=== PATIENT | female | born 1975 | race Caucasian/White ===

== ENCOUNTER 2018-01-22 16:42 | Inpatient (IN) | payer MEDICARE, OTHER ==
[2018-01-22] MEDS ORDERED: SODIUM CHLORIDE 0.9% 1,000 ML IV STA (17:57)
[2018-01-22] MEDS ORDERED: methylPREDNISolone SOD SUCCI 250 MG in SODIUM CHLORIDE 0.9% 100 ML IVPB STA (17:57)
--- NOTE | 2018-01-22 18:01 | ED ---
General Adult HPI - General Chief complaint: Weakness Stated complaint: has ms, legs have been giving out, cant walk Time Seen by Provider: 01/22/18 17:26 Source: patient, RN notes reviewed Mode of arrival: wheelchair Limitations: no limitations - History of Present Illness Initial comments: 42-year-old female with a past medical history of multiple sclerosis presents to the emergency department for a chief complaint of weakness in the legs times one day. Patient states she started to have leg cramping in her anterior bilateral thighs yesterday and today her legs are giving out. She denies any significant back pain at this time and denies any saddle anesthesia or bladder or bowel changes. She states that she has had this happen before. She states that when this happens she has been admitted for IV steroids. She states she generally has mobility issues due to multiple sclerosis but she feels as if she has an an exacerbation at this time. She states she does not follow with a neurologist at this time. She states she does not take any medications for multiple sclerosis. She denies any shortness of breath or chest pain. Patient has no other complaints at this time including shortness of breath, chest pain, abdominal pain, nausea or vomiting, headache, or visual changes. - Related Data Home Medications Medication Instructions Recorded Confirmed Acetaminophen [Tylenol Extra 1,000 mg PO TID PRN 01/22/18 01/22/18 Strength] Allergies Allergy/AdvReac Type Severity Reaction Status Date / Time No Known Allergies Allergy Verified 01/22/18 17:41 Review of Systems ROS Statement: Those systems with pertinent positive or pertinent negative responses have been documented in the HPI. ROS Other: All systems not noted in ROS Statement are negative. Past Medical History Past Medical History: Eye Disorder, GERD/Reflux, Musculoskeletal Disorder, Neurologic Disorder, Pneumonia Additional Past Medical History / Comment(s): 06/19/15 Pt presented to [facility] ER with L sided weakness to L arm and L leg. she fell 2ndary to this L leg weakness this morning. She is being admitted with clinical impression of exacerbation of MS. Other HX: Pt currently being worked up for multiple sclerosis and is being treated for it by Dr. Stephen Titus, she started having bilateral leg weakness in June 2014. PT STATES SHE HAD A BRAIN MRI IN AUGUST AND IT SHOWED LESIONS IN THE FRONTAL LOBE-she has had a LP which was negative for MS. Additional hx: herniated disc and calcified disc as well as bulging disc L4-L5, DJD, chronic back pain, pleurisy, generalized neuropathy per pt, migraines. History of Any Multi-Drug Resistant Organisms: MRSA Date of last positivie culture/infection: 2010 MDRO Source:: R leg Past Surgical History: Tubal Ligation Additional Past Surgical History / Comment(s): LP's, wisdom teeth extraction. Past Anesthesia/Blood Transfusion Reactions: No Reported Reaction Additional Past Anesthesia/Blood Transfusion Reaction / Comment(s): Pt states she has never received blood. Past Psychological History: No Psychological Hx Reported Smoking Status: Current every day smoker Past Alcohol Use History: None Reported Past Drug Use History: Marijuana - Past Family History Father Family Medical History: Unable to Obtain Mother Family Medical History: CVA/TIA, Fibromyalgia Additional Family Medical History / Comment(s): mva as teenager, murmur, 2007 (medication abuse) General Exam Limitations: no limitations General appearance: alert, in no apparent distress Head exam: Present: atraumatic, normocephalic, normal inspection Eye exam: Present: normal appearance, PERRL, EOMI. Absent: scleral icterus, conjunctival injection, periorbital swelling ENT exam: Present: normal exam, mucous membranes moist Neck exam: Present: normal inspection, full ROM. Absent: tenderness, meningismus, lymphadenopathy Respiratory exam: Present: normal lung sounds bilaterally. Absent: respiratory distress, wheezes, rales, rhonchi, stridor Cardiovascular Exam: Present: regular rate, normal rhythm, normal heart sounds. Absent: systolic murmur, diastolic murmur, rubs, gallop, clicks GI/Abdominal exam: Present: soft, normal bowel sounds. Absent: distended, tenderness, guarding, rebound, rigid Extremities exam: Present: normal capillary refill (Capillary refill less than 2 seconds and DP pulse 2+ in lower extremities bilaterally), other (Station intact in the lower extremities bilaterally, strength 4 out of 5 in lower extremities bilaterally) Back exam: Absent: vertebral tenderness (No lumbar spine tenderness) Neurological exam: Present: alert, oriented X3, CN II-XII intact, abnormal gait (weakness with gait that patient states is consistent with ms flare, ), reflexes normal (Patellar reflexes 2+ bilaterally) Course Vital Signs 01/22/18 16:45 Temperature 97.6 F Pulse Rate 118 H Respiratory 16 Rate Blood Pressure 109/72 O2 Sat by Pulse 98 Oximetry EKG Findings - EKG Comments: EKG Findings:: Normal sinus rhythm Ventricular rate 84 MO interval 126, QRS duration 86, QTC 408 Medical Decision Making - Medical Decision Making 42-year-old female presents to the emergency department for a chief complaint of bilateral leg weakness following muscle cramps starting yesterday. Patient states this is consistent with multiple sclerosis remissions. Patient states she is not on any medications or seeing a neurologist for this. Patient states when this happened before she had to be admitted for IV steroids. On exam patient has 4 out of 5 strength in the lower extremity bilaterally. Neurovascular intact in lower extremity bilaterally. She is alert and oriented 3 and denying any chest pain shortness of breath or fevers at home. Patient initially was tachycardic at 118 but EKG acquired shortly after this showed a ventricular rate of 84. No evidence of ST elevation or depression. Troponin is less than 0.012. CBC and CMP are unremarkable. Urine was cultured for any evidence of infection. Chest x-ray showed a normal chest without any evidence of consolidation. Patient was given IV piggyback Solu-Medrol. Patient will be admitted to [facility] with consult to Dr. Barnard neurologist. Dr. Zambrano recommended continuing Solu-Medrol 250 every 6 hours. Case was discussed with Dr. Amaya. - Lab Data Result diagrams: 01/22/18 18:15 01/22/18 18:15 Lab Results 01/22/18 01/22/18 01/22/18 Range/Units 18:15 18:15 18:15 WBC 8.9 (3.8-10.6) k/uL RBC 4.63 (3.80-5.40) m/uL Hgb 14.7 (11.4-16.0) gm/dL Hct 44.5 (34.0-46.0) % MCV 96.0 (80.0-100.0) fL MCH 31.8 (25.0-35.0) pg MCHC 33.1 (31.0-37.0) g/dL RDW 13.1 (11.5-15.5) % Plt Count 204 (150-450) k/uL Neutrophils % 63 % Lymphocytes % 27 % Monocytes % 5 % Eosinophils % 2 % Basophils % 1 % Neutrophils # 5.6 (1.3-7.7) k/uL Lymphocytes # 2.4 (1.0-4.8) k/uL Monocytes # 0.5 (0-1.0) k/uL Eosinophils # 0.2 (0-0.7) k/uL Basophils # 0.1 (0-0.2) k/uL PT (9.0-12.0) sec INR (<1.2) APTT (22.0-30.0) sec Sodium 142 (137-145) mmol/L Potassium 4.3 (3.5-5.1) mmol/L Chloride 111 H (98-107) mmol/L Carbon Dioxide 22 (22-30) mmol/L Anion Gap 9 mmol/L BUN 18 H (7-17) mg/dL Creatinine 0.92 (0.52-1.04) mg/dL Est GFR (CKD-EPI)AfAm >90 (>60 ml/min/1.73 sqM) Est GFR (CKD-EPI)NonAf 78 (>60 ml/min/1.73 sqM) Glucose 91 (74-99) mg/dL Calcium 9.8 (8.4-10.2) mg/dL Total Bilirubin 0.3 (0.2-1.3) mg/dL AST 18 (14-36) U/L ALT 19 (9-52) U/L Alkaline Phosphatase 48 (38-126) U/L Total Creatine Kinase 57 (30-135) U/L CK-MB (CK-2) <0.2 (0.0-2.4) ng/mL CK-MB (CK-2) Rel Index Troponin I <0.012 (0.000-0.034) ng/mL Total Protein 7.6 (6.3-8.2) g/dL Albumin 4.6 (3.5-5.0) g/dL Urine Color Urine Appearance (Clear) Urine pH (5.0-8.0) Ur Specific [place] (1.001-1.035) Urine Protein (Negative) Urine Glucose (UA) (Negative) Urine Ketones (Negative) Urine Blood (Negative) Urine Nitrite (Negative) Urine Bilirubin (Negative) Urine Urobilinogen (<2.0) mg/dL Ur Leukocyte Esterase (Negative) Urine RBC (0-5) /hpf Urine WBC (0-5) /hpf Ur Squamous Epith Cells (0-4) /hpf Amorphous Sediment (None) /hpf Urine Bacteria (None) /hpf Urine Mucus (None) /hpf 01/22/18 01/22/18 Range/Units 18:15 19:48 WBC (3.8-10.6) k/uL RBC (3.80-5.40) m/uL Hgb (11.4-16.0) gm/dL Hct (34.0-46.0) % MCV (80.0-100.0) fL MCH (25.0-35.0) pg MCHC (31.0-37.0) g/dL RDW (11.5-15.5) % Plt Count (150-450) k/uL Neutrophils % % Lymphocytes % % Monocytes % % Eosinophils % % Basophils % % Neutrophils # (1.3-7.7) k/uL Lymphocytes # (1.0-4.8) k/uL Monocytes # (0-1.0) k/uL Eosinophils # (0-0.7) k/uL Basophils # (0-0.2) k/uL PT 10.9 (9.0-12.0) sec INR 1.1 (<1.2) APTT 24.6 (22.0-30.0) sec Sodium (137-145) mmol/L Potassium (3.5-5.1) mmol/L Chloride (98-107) mmol/L Carbon Dioxide (22-30) mmol/L Anion Gap mmol/L BUN (7-17) mg/dL Creatinine (0.52-1.04) mg/dL Est GFR (CKD-EPI)AfAm (>60 ml/min/1.73 sqM) Est GFR (CKD-EPI)NonAf (>60 ml/min/1.73 sqM) Glucose (74-99) mg/dL Calcium (8.4-10.2) mg/dL Total Bilirubin (0.2-1.3) mg/dL AST (14-36) U/L ALT (9-52) U/L Alkaline Phosphatase (38-126) U/L Total Creatine Kinase (30-135) U/L CK-MB (CK-2) (0.0-2.4) ng/mL CK-MB (CK-2) Rel Index Troponin I (0.000-0.034) ng/mL Total Protein (6.3-8.2) g/dL Albumin (3.5-5.0) g/dL Urine Color Yellow Urine Appearance Turbid H (Clear) Urine pH 6.0 (5.0-8.0) Ur Specific [place] 1.021 (1.001-1.035) Urine Protein Trace H (Negative) Urine Glucose (UA) Negative (Negative) Urine Ketones Trace H (Negative) Urine Blood Negative (Negative) Urine Nitrite Negative (Negative) Urine Bilirubin Negative (Negative) Urine Urobilinogen <2.0 (<2.0) mg/dL Ur Leukocyte Esterase Large H (Negative) Urine RBC 4 (0-5) /hpf Urine WBC 5 (0-5) /hpf Ur Squamous Epith Cells 13 H (0-4) /hpf Amorphous Sediment Rare H (None) /hpf Urine Bacteria Occasional H (None) /hpf Urine Mucus Rare H (None) /hpf - Radiology Data Radiology results: report reviewed, image reviewed Disposition Clinical Impression: Bilateral leg weakness, Multiple sclerosis Disposition: ADMITTED IP TO [facility] Condition: Good Referrals: Stephen Viramontes MD [Primary Care Provider] - 1-2 days Time of Disposition: 20:37
[2018-01-22 18:38] LABS: Basophils # (A) 0.1 k/uL (0-0.2); Basophils % (A) 1 %; Eosinophils # (A) 0.2 k/uL (0-0.7); Eosinophils % (A) 2 %; HCT 44.5 % (34.0-46.0); HGB 14.7 gm/dL (11.4-16.0); Lymphocytes # (A) 2.4 k/uL (1.0-4.8); Lymphocytes % (A) 27 %; MCH 31.8 pg (25.0-35.0); MCHC 33.1 g/dL (31.0-37.0); Mean Platelet Volume 8.2; Monocytes # (A) 0.5 k/uL (0-1.0); Monocytes % (A) 5 %; Neutrophils # (A) 5.6 k/uL (1.3-7.7); Neutrophils % (A) 63 %; Platelet Count 204 k/uL (150-450); RBC 4.63 m/uL (3.80-5.40); RDW 13.1 % (11.5-15.5); WBC 8.9 k/uL (3.8-10.6)
[2018-01-22 18:48] LABS: INR 1.1 (<1.2); Partial Thromboplastin Time 24.6 sec (22.0-30.0); Prothrombin Time 10.9 sec (9.0-12.0)
[2018-01-22 18:49] LABS: ALT 19 U/L (9-52); AST 18 U/L (14-36); Albumin 4.6 g/dL (3.5-5.0); Alkaline Phosphatase 48 U/L (38-126); Anion Gap 9 mmol/L; Blood Urea Nitrogen 18 mg/dL (7-17); Calcium 9.8 mg/dL (8.4-10.2); Carbon Dioxide 22 mmol/L (22-30); Chloride 111 mmol/L (98-107); Glucose 91 mg/dL (74-99); Potassium 4.3 mmol/L (3.5-5.1); Sodium 142 mmol/L (137-145); Total Bilirubin 0.3 mg/dL (0.2-1.3); Total Protein 7.6 g/dL (6.3-8.2)
[2018-01-22 18:53] LABS: Creatine Kinase 57 U/L (30-135)
[2018-01-22 19:07] LABS: Creatine Kinase MB <0.2 ng/mL (0.0-2.4); Troponin I <0.012 ng/mL (0.000-0.034)
--- NOTE | 2018-01-22 19:46 | XR ---
EXAMINATION TYPE: XR chest 2V DATE OF EXAM: 01/22/2018 COMPARISON: February 16, 2016 HISTORY: Leg weakness TECHNIQUE: Frontal and lateral views of the chest are obtained. FINDINGS: Heart and mediastinum are normal. Lungs are clear. Diaphragm is normal. Bony thorax appear s normal. IMPRESSION: Normal chest. No change.
[2018-01-22 20:09] LABS: Amorphous Sediment,Urine Rare /hpf; Appearance,Urine Turbid (Clear); Bacteria,Urine Occasional /hpf; Bilirubin,Urine Negative (Negative); Blood,Urine Negative (Negative); Color,Urine Yellow; Glucose,Urine (UA) Negative (Negative); Ketones,Urine Trace (Negative); Leukocyte Esterase,Urine Large (Negative); Mucus,Urine Rare /hpf; Nitrite,Urine Negative (Negative); Protein,Urine Trace (Negative); RBC,Urine 4 /hpf (0-5); Specific Gravity,Urine 1.021 (1.001-1.035); Squamous Epithelial Cell,Urine 13 /hpf (0-4); Urobilinogen,Urine <2.0 mg/dL (<2.0); WBC,Urine 5 /hpf (0-5)
[2018-01-22] MEDS ORDERED: KETOROLAC 30 MG/ML 1 ML VIAL IVP PRN (20:40)
[2018-01-22] MEDS ORDERED: NALOXONE 0.4 MG/ML 1 ML VIAL IV PRN (20:40)
[2018-01-22] MEDS ORDERED: ACETAMINOPHEN TAB 325 MG TAB PO PRN (20:40)
[2018-01-22] MEDS ORDERED: ONDANSETRON 4 MG/2 ML VIAL IVP PRN (20:40)
[2018-01-22] MEDS: SODIUM CHLORIDE 0.9% 1,000 ML IV SCH (22:37)
--- NOTE | 2018-01-22 23:22 | P.HPIM ---
History of Present Illness H&P Date: 01/22/18 Chief Complaint: bilateral leg weakness 42 year old female with history of MS. patient reports baseline of weakness in her legs, requiring assistance device for ambulation , however yesterday she noticed that worsening weakness and bilateral knees she couldn't walk on her own or stand on her own she ended up sitting while doing dishes and preparing meals for the family. She denies any fevers chills denies any changes in her vision denies any changes in sensation or weakness anywhere else in her body except for her lower extremities she also reports a baseline numbness in her bilateral soles. Today she felt that her symptoms got worse and she wasn't even able to get off the chair from a sitting position so decided come the hospital she called a cab and her family assisted her to walk to to the cab to come to the hospital the hospital. She cannot identify any specific stressors that precipitated her attack but she is going through a lot of social stressors. Currently she doesn't notice any improvement in her strength yet in the ED case was discussed with neurology team recommended starting her on methylprednisolone shots and admitted to the hospital She has no established outpatient neurology care, she was diagnosed with MS by performing MRI of the brain in back in 2015. She doesn't take any medications at home Review of Systems Pertinent positives as noted in HPI. All other systems were reviewed and are negative Past Medical History Past Medical History: GERD/Reflux, Musculoskeletal Disorder, Neurologic Disorder , Pneumonia Additional Past Medical History / Comment(s): ms. herniated disc and calcified disc as well as bulging disc L4-L5, DJD, chronic back pain, pleurisy, generalized neuropathy per pt, migraines.occ fuzzy vision. History of Any Multi-Drug Resistant Organisms: MRSA Date of last positivie culture/infection: 2010 MDRO Source:: R leg Past Surgical History: Tubal Ligation Additional Past Surgical History / Comment(s): LP's, wisdom teeth extraction. Past Anesthesia/Blood Transfusion Reactions: No Reported Reaction Additional Past Anesthesia/Blood Transfusion Reaction / Comment(s): Pt states she has never received blood. Past Psychological History: No Psychological Hx Reported Additional Psychological History / Comment(s): apt w/15 year old daughter, inprocess of divirce She lost her walker. now she-she holds onto furniture or daughter helps her. She no longer drives insurance pays for a ride to get to [employer]. Smoking Status: Current every day smoker Past Alcohol Use History: None Reported Additional Past Alcohol Use History / Comment(s): started smoking at age 19- smokes 1 pp every 3 days Past Drug Use History: Marijuana Additional Drug Use History / Comment(s): occ use none in last 4 months - Past Family History Father Family Medical History: Myocardial Infarction (CT) Mother Family Medical History: CVA/TIA, Fibromyalgia Additional Family Medical History / Comment(s): mva as teenager, murmur, 2007 (medication abuse) Medications and Allergies Home Medications Medication Instructions Recorded Confirmed Type Acetaminophen [Tylenol Extra 1,000 mg PO TID PRN 01/22/18 01/22/18 History Strength] Allergies Allergy/AdvReac Type Severity Reaction Status Date / Time No Known Allergies Allergy Verified 01/22/18 17:41 Physical Exam Vitals: Vital Signs Temp Pulse Resp BP Pulse Ox 01/22/18 20:48 66 16 104/62 98 01/22/18 16:45 97.6 F 118 H 16 109/72 98 Intake and Output 01/22/18 01/22/18 01/22/18 06:59 14:59 22:59 Other: Weight 78.381 kg Constitutional: No acute distress, conversant, pleasant Eyes: Anicteric sclerae, moist conjunctiva, no lid-lag Pupils equal round reactive to light ENMT: NC/AT Oropharynx clear, no erythema, or exudates Neck: Supple, FROM, no masses, or JVD No carotid bruits No thyromegaly Lungs: Clear to auscultation Clear to percussion Normal respiratory effort, no accessory muscle use Cardiovascular: Heart regular in rate and rhythm, No murmurs, gallops, or rubs No peripheral edema Abdominal: Soft Nontender, no guarding, rebound or rigidity Abdomen moving with respiration Normoactive bowel sounds No hepatomegaly, No splenomegaly No palpable mass No abdominal wall hernia noted Skin: Normal temperature, tone, texture, turgor No induration No subcutaneous nodules No rash, lesions No ulcers Extremities: No digital cyanosis No clubbing Pedal pulses intact and symmetrical Radial pulses intact and symmetrical No calf tenderness Psychiatric: Alert and oriented to person, place and time Appropriate affect fair judgment Neuro Muscles Strength 5/5 in bilateral upper extremities, however her lower extremities are showing a strength of 3+ out of 5 in proximal muscle group and -3 out of 5 in the distal muscle group bilaterally, dorsal reflex is downward on the right foot and equivocal on the left foot, sensation is dull to sharp pain over bilateral soles Sensation to light touch grossly present throughout, except for dull sensation over bilateral soles Cranial nerves II-XII grossly intact No focal sensory deficits Gait was not tested, patient didn't feel safe to stand Lymphatics: no palpable cervical or supraclavicular , or inguinal lymph nodes Results CBC & Chem 7: 01/22/18 18:15 01/22/18 18:15 Labs: Abnormal Lab Results - Last 24 Hours (Table) 01/22/18 01/22/18 Range/Units 18:15 19:48 Chloride 111 H (98-107) mmol/L BUN 18 H (7-17) mg/dL Urine Appearance Turbid H (Clear) Urine Protein Trace H (Negative) Urine Ketones Trace H (Negative) Ur Leukocyte Esterase Large H (Negative) Ur Squamous Epith Cells 13 H (0-4) /hpf Amorphous Sediment Rare H (None) /hpf Urine Bacteria Occasional H (None) /hpf Urine Mucus Rare H (None) /hpf Assessment and Plan Assessment: 42-year-old female with history of MS admitted as inpatient with anticipated length of stay more than 48 hours due to acute MS exacerbation, case was discussed with neurology recreation attendant who recommended admission and starting the patient on high-dose steroids Plan: Multiple sclerosis flareup Case discussed with neurology Neurology consult Solu-Medrol one gram daily Neurochecks Fall precautions DVT prophylaxis heparin subcu 3 times a day Preformed a thorough record review from recent hospitalization patient diagnosed with MS by performing MRI of the brain and she had a positive LP. Surrogate decision-maker: Patient could not identify CODE STATUS: Full code Discussed with: Patient, ER, RN Anticipated discharge: 48-[address]: Pending clinical course A total of 60minutes was spent on the care of this complex patient more than 50 % of the time was spent in counseling and care coordination.
[2018-01-23] MEDS: methylPREDNISolone SOD SUCCI 250 MG in SODIUM CHLORIDE 0.9% 100 ML IVPB SCH ×5 (00:15→23:23)
[2018-01-23] MEDS: HEPARIN SODIUM,PORCINE 5,000 UNIT/ML 1 ML VIAL SQ SCH ×4 (00:40→23:24)
[2018-01-23] MEDS: SODIUM CHLORIDE 0.9% 1,000 ML IV SCH ×3 (06:00→23:24)
[2018-01-23] MEDS ORDERED: ALPRAZolam 0.25 MG TAB PO PRN (08:23)
--- NOTE | 2018-01-23 08:35 | P.PN ---
Subjective Progress Note Date: 01/23/18 Principal diagnosis: weakness Patient is a 42-year-old female with a past medical history of migraine headaches, chronic low back pain, and multiple sclerosis who presented to the emergency department with complaints of lower extremity weakness. In the emergency department she was found to be slightly tachycardic with a heart rate of 118. Initial laboratory analysis was normal. UA was concentrated but no definitive signs of infection. Chest x-ray showed no acute process. Per records neurology was contacted by the emergency department the patient was started on IV steroids. She is admitted for possible multiple sclerosis flare. Patient seen and examined at bedside. She states she is still having some back pain but is better than when she came in. Still with lower extremity weakness. Has not attempted to stand yet. No nausea, vomiting, or fidgetiness. Anxious about regaining her strength. Discussed with her about awaiting neurology evaluation for further recommendations. Patient is not currently seeing a neurologist. She states she is not on any MS specific medications. She states that she has only needed oral medications with her primary care physician over the last year and a half. Objective - Vital Signs Vital signs: Vital Signs Temp 96.7 F L 01/23/18 07:22 Pulse 73 01/23/18 07:22 Resp 12 01/23/18 07:22 BP 109/56 01/23/18 07:22 Pulse Ox 95 01/23/18 06:38 Intake & Output 01/22/18 01/23/18 01/23/18 18:59 06:59 18:59 Intake Total 2098 Balance 2098 Weight 78.381 kg 77.5 kg Intake: Intake, IV Titration 2098 Amount Sodium Chloride 0.9% 1, 800 000 ml @ 100 mls/hr IV . Q10H [facility] Rx#:[id number] Sodium Chloride 0.9% 1, 999 000 ml @ 999 mls/hr IV . Q1H1M STA Rx#:[id number] methylPREDNISolone SOD 300 SUCCI 250 mg In Sodium Chloride 0.9% 100 ml @ 100 mls/hr IVPB Q6H [facility]SH Rx#:[id number] Other: Voiding Method Bedpan # Voids 1 - Exam General: non toxic, no distress, appears at stated age Derm: warm, dry Head: atraumatic, normocephalic, symmetric Eyes: EOMI, no lid lag, anicteric sclera Mouth: no lip lesion, mucus membranes moist Cardiovascular: S1S2 reg, no murmur, positive posterior tibial pulse bilateral, Lungs: CTA bilateral, no rhonchi, no rales , no accessory muscle use Abdominal: soft, nontender to palpation, no guarding, no appreciable organomegaly Ext: no gross muscle atrophy, no edema, no contractures Neuro: CN II-XI grossly intact, patient has give way weakness bilateral lower extremities, she will lower her legs to the bed, moving and able to sit up without difficulty Psych: Alert, oriented, ears anxious - Labs CBC & Chem 7: 01/22/18 18:15 01/22/18 18:15 Labs: Abnormal Lab Results - Last 24 Hours (Table) 01/22/18 01/22/18 Range/Units 18:15 19:48 Chloride 111 H (98-107) mmol/L BUN 18 H (7-17) mg/dL Urine Appearance Turbid H (Clear) Urine Protein Trace H (Negative) Urine Ketones Trace H (Negative) Ur Leukocyte Esterase Large H (Negative) Ur Squamous Epith Cells 13 H (0-4) /hpf Amorphous Sediment Rare H (None) /hpf Urine Bacteria Occasional H (None) /hpf Urine Mucus Rare H (None) /hpf Microbiology - Last 24 Hours (Table) 01/22/18 19:48 Urine Culture - Preliminary Urine,Voided Assessment and Plan Assessment: Multiple sclerosis flare -Continue with Solu-Medrol 250 every 6 hours - Await neurology evaluation - add insulin sliding scale - neurochecks - fall precautions GERD - PPI Chronic low back pain - toradol DVT prophylaxis: Heparin Discussed with: Patient, nursing Anticipated discharge: [address]: home A total of 35 minutes was spent on the care of this complex patient more than 50 % of the time was spent in counseling and care coordination.
[2018-01-23] MEDS: PANTOPRAZOLE 40 MG TABLET PO SCH (09:21)
[2018-01-23] MEDS: INSULIN ASPART 100 UNIT/ML 1 ML 10 ML VIAL SQ SCH ×3 (12:43→21:56)
[2018-01-23 12:44] LABS: Glucose,Whole Blood 141 mg/dL (75-99)
[2018-01-23 17:30] LABS: Glucose,Whole Blood 232 mg/dL (75-99)
--- NOTE | 2018-01-23 19:59 | P.CNNES ---
History of Present Illness Consult date: 01/23/18 History of Present Illness: Patient is a 42-year-old woman with history of MS. Apparently the patient developed numbness and weakness in the legs and 2015. At that time she was seen by neurologist, Dr. Hankins, and she had a negative spinal tap and MRI. She then sought second opinion with a neurologist out of town who she states determined that she had MS. His records are not available at present. She states that he no longer took her insurance so she was unable to see him and her last visit was in early 2016. The patient states that she has not made any attempt to find a neurologist that takes her insurance since early 2016 because she states there was too much going on with her life. Patient gives history of back problems in the past sent and has been seen by Dr. Miller. She was diagnosed with degenerative disc disease and bulging disc. He does complain of some mild sacral pain over the last 48 hours which is a dull ache. Patient lives at home with her 15-year-old daughter. She states that she normally uses a walker but she has not had a walker because she lost hers months ago. She states she gets around at home by hanging onto the wall. When asked about her daily activities, she states that over the past week she has been out to pick furniture and has had a visit to the courthouse. She does not drive. Patient states that yesterday her legs became weaker and 2 days ago she developed more spasms in her legs. She has a history of spasms in the arms and legs since 2016. Her present complaint is increased numbness and tingling in both legs. She denies any visual changes. She states her vision is good. She denied any bowel or bladder incontinence. Has been no falls. She denies any speech or swallowing difficulty. She states she is able to cook do her laundry and clean house. Review of Systems Constitutional: Denies chills, Denies fever Eyes: denies blurred vision, denies pain Cardiovascular: Denies chest pain, Denies shortness of breath Respiratory: Denies cough Musculoskeletal: Denies myalgias Neurological: Denies numbness, Denies weakness Psychiatric: Denies anxiety, Denies depression Past Medical History Past Medical History: GERD/Reflux, Musculoskeletal Disorder, Neurologic Disorder , Pneumonia Additional Past Medical History / Comment(s): ms. herniated disc and calcified disc as well as bulging disc L4-L5, DJD, chronic back pain, pleurisy, generalized neuropathy per pt, migraines.occ fuzzy vision. History of Any Multi-Drug Resistant Organisms: MRSA Date of last positivie culture/infection: 2010 MDRO Source:: R leg Past Surgical History: Tubal Ligation Additional Past Surgical History / Comment(s): LP's, wisdom teeth extraction. Past Anesthesia/Blood Transfusion Reactions: No Reported Reaction Additional Past Anesthesia/Blood Transfusion Reaction / Comment(s): Pt states she has never received blood. Past Psychological History: No Psychological Hx Reported Additional Psychological History / Comment(s): apt w/15 year old daughter, inprocess of divirce She lost her walker. now she-she holds onto furniture or daughter helps her. She no longer drives insurance pays for a ride to get to appts. Smoking Status: Current every day smoker Past Alcohol Use History: None Reported Additional Past Alcohol Use History / Comment(s): started smoking at age 19- smokes 1 pp every 3 days Past Drug Use History: Marijuana Additional Drug Use History / Comment(s): occ use none in last 4 months - Past Family History Father Family Medical History: Myocardial Infarction ([place]) Mother Family Medical History: CVA/TIA, Fibromyalgia Additional Family Medical History / Comment(s): mva as teenager, murmur, 2007 (medication abuse) Medications and Allergies Home Medications Medication Instructions Recorded Confirmed Type Acetaminophen [Tylenol Extra 1,000 mg PO TID PRN 01/22/18 01/22/18 History Strength] Allergies Allergy/AdvReac Type Severity Reaction Status Date / Time No Known Allergies Allergy Verified 01/22/18 17:41 Physical Examination - Vital Signs Vital Signs: Vital Signs Temp Pulse Pulse Resp BP BP Pulse Ox 01/23/18 15:00 98.0 F 70 20 97/56 92 L 01/23/18 07:22 96.7 F L 73 12 109/56 01/23/18 06:38 96.6 F L 65 16 100/65 95 01/22/18 22:08 97.6 F 76 16 113/56 95 01/22/18 20:48 66 16 104/62 98 Intake and Output 01/23/18 01/23/18 01/23/18 06:59 14:59 22:59 Intake Total 1000 640 Balance 1000 640 Intake: Intake, IV Titration 1000 Amount Sodium Chloride 0.9% 1, 800 000 ml @ 100 mls/hr IV . Q10H HARSH Rx#:[id number] methylPREDNISolone SOD 200 SUCCI 250 mg In Sodium Chloride 0.9% 100 ml @ 100 mls/hr IVPB Q6H HARSH Rx#:[id number] Oral 640 Other: Voiding Method Bedside Commode # Voids 1 2 - Constitutional General appearance: average body habitus - EENT EENT: PERRL - Respiratory Respiratory: lungs clear - Cardiovascular Cardiovascular: regular rate - Integumentary Integumentary: normal - Neurologic Neurologic examination: Mental status: She was awake alert and oriented. There is no a aphasia or dysarthria. Cranial nerve examination: Nerves II through XII are grossly intact Motor examination: And upper extremity strength is 5 out of 5 in the lower extremities she had difficulty raising her legs but was able to raise both legs up against gravity Sensory examination: Variable distribution sensory loss in both lower extremities area and did not follow any particular dermatome. Deep tendon reflexes were 2+ and symmetric Results - Laboratory Findings CBC and BMP: 01/22/18 18:15 01/22/18 18:15 Abnormal Lab Findings: Abnormal Labs 01/22/18 01/22/18 01/23/18 18:15 19:48 12:40 Chloride 111 H BUN 18 H POC Glucose (mg/dL) 141 H Urine Appearance Turbid H Urine Protein Trace H Urine Ketones Trace H Ur Leukocyte Esterase Large H Ur Squamous Epith Cells 13 H Amorphous Sediment Rare H Urine Bacteria Occasional H Urine Mucus Rare H 01/23/18 17:19 Chloride BUN POC Glucose (mg/dL) 232 H Urine Appearance Urine Protein Urine Ketones Ur Leukocyte Esterase Ur Squamous Epith Cells Amorphous Sediment Urine Bacteria Urine Mucus Assessment and Plan (1) Exacerbation of multiple sclerosis Current Visit: No Status: Acute SNOMED Code(s): 072241076 Plan: The patient is a 40-year-old woman who has a reported history of multiple sclerosis. She presented to the emergency room complaining of leg weakness and tingling. She was admitted for IV steroids. She has not had any medication for MS or seen a neurologist since early 2016. In 2016 that she has had a negative MRI of the brain and neck apparently a negative spinal tap. She reports having a positive spinal tap by an outside physician whom she no longer sees. Will try and obtain records emend MRI of the brain and cervical spine., and recommend physical therapy to assess patient
[2018-01-23 20:42] LABS: Glucose,Whole Blood 149 mg/dL (75-99)
[2018-01-23] MEDS: MELATONIN 5 MG TABLET PO PRN (23:23)
[2018-01-24] MEDS: methylPREDNISolone SOD SUCCI 250 MG in SODIUM CHLORIDE 0.9% 100 ML IVPB SCH ×4 (06:40→23:10)
[2018-01-24 07:29] LABS: Glucose,Whole Blood 153 mg/dL (75-99)
[2018-01-24] MEDS: PANTOPRAZOLE 40 MG TABLET PO SCH (08:00)
[2018-01-24] MEDS: HEPARIN SODIUM,PORCINE 5,000 UNIT/ML 1 ML VIAL SQ SCH ×3 (08:00→23:11)
[2018-01-24] MEDS: INSULIN ASPART 100 UNIT/ML 1 ML 10 ML VIAL SQ SCH ×4 (08:00→20:50)
[2018-01-24] MEDS ORDERED: CALCIUM CARBONATE 500 MG CHEWABLE PO PRN (11:15)
--- NOTE | 2018-01-24 11:17 | P.PN ---
Subjective Progress Note Date: 01/24/18 Principal diagnosis: weakness Patient is a 42-year-old female with a past medical history of migraine headaches, chronic low back pain, and multiple sclerosis who presented to the emergency department with complaints of lower extremity weakness. In the emergency department she was found to be slightly tachycardic with a heart rate of 118. Initial laboratory analysis was normal. UA was concentrated but no definitive signs of infection. Chest x-ray showed no acute process. Per records neurology was contacted by the emergency department the patient was started on IV steroids. She is admitted for possible multiple sclerosis flare. Seen by neurology and awaiting MRI. Patient seen and examined at bedside. States her weakness is slightly better. Complains of bad heart burn. No chest pain, shortness of breath, nausea and vomiting. Feeling a little bit fidgety. Objective - Vital Signs Vital signs: Vital Signs Temp 98.2 F 01/24/18 06:52 Pulse 72 01/24/18 06:52 Resp 16 01/24/18 06:52 BP 99/62 01/24/18 06:52 Pulse Ox 93 L 01/24/18 06:52 Intake & Output 01/23/18 01/24/18 01/24/18 18:59 06:59 18:59 Intake Total 640 Balance 640 Intake: Oral 640 Other: Voiding Method Bedside Commode # Voids 2 2 - Exam General: non toxic, no distress, appears at stated age Derm: warm, dry Head: atraumatic, normocephalic, symmetric Eyes: EOMI, no lid lag, anicteric sclera Mouth: no lip lesion, mucus membranes moist Cardiovascular: S1S2 reg, no murmur, positive posterior tibial pulse bilateral, Lungs: CTA bilateral, no rhonchi, no rales , no accessory muscle use Abdominal: soft, nontender to palpation, no guarding, no appreciable organomegaly Ext: no gross muscle atrophy, no edema, no contractures Neuro: CN II-XI grossly intact, patient has give way weakness bilateral lower extremities, sits up without difficulty when leg raised she hold knee in place and drops ankle down to bed. Psych: Alert, oriented,anxious - Labs CBC & Chem 7: 01/22/18 18:15 01/22/18 18:15 Labs: Abnormal Lab Results - Last 24 Hours (Table) 01/23/18 01/23/18 01/23/18 Range/Units 12:40 17:19 20:41 POC Glucose (mg/dL) 141 H 232 H 149 H (75-99) mg/dL 01/24/18 Range/Units 06:58 POC Glucose (mg/dL) 153 H (75-99) mg/dL Microbiology - Last 24 Hours (Table) 01/22/18 19:48 Urine Culture - Final Urine,Voided 01/22/18 18:15 Blood Culture - Preliminary Blood No Growth after 24 hours Assessment and Plan Assessment: Multiple sclerosis flare -Continue with Solu-Medrol 250 every 6 hours - neurology recs appreciated - PT eval - neurochecks - fall precautions GERD - PPI - prn tums Chronic low back pain - toradol Tobacco abuse - cessation - does not want nicotine replacement DVT prophylaxis: Heparin Discussed with: Patient, nursing Anticipated discharge: [address]: home A total of 35 minutes was spent on the care of this complex patient more than 50 % of the time was spent in counseling and care coordination.
[2018-01-24 12:11] LABS: Glucose,Whole Blood 166 mg/dL (75-99)
--- NOTE | 2018-01-24 12:31 | MR ---
EXAMINATION TYPE: MR brain/cspine wo DATE OF EXAM: 01/24/2018 COMPARISON: Previous study dated 04/21/2015. HISTORY: MS exacerbation TECHNIQUE: Multiplanar, multisequence images of the brain and brainstem is performed without contrast. Demyelin ating disease protocol with additional Sagittal Flair sequence performed. FINDINGS: T2 Lesions Present : No Approximate Number of Lesions: None T1 Hypointense Lesion(s) Present: No Change from Prior: Stable Middle ear structures are unremarkable. There is normal cranial cervical junction. Echoplanar diffusion imaging is normal. There are normal vascular flow voids. The orbits are normal. There is no evidence of a CP angle mass lesion. There is no focal lesion, mass effect or midline shift identified. I do not see evidence of intracran ial blood. IMPRESSION: Normal MRI of the brain. CERVICAL SPINE: FINDINGS: Prevertebral soft tissues are normal. Vertebral body height and alignment are maintained. Atlantoaxial relationships are normal. There is a normal craniocervical junction. Cord signal is normal. I do not see evidence of MS plaques . At C2-C3, no abnormality is seen. At C3-C4, there is mild disc space loss. There is no significant compressive discopathy. The facet an d uncovertebral joints are normal. At C4-C5, the intervertebral foramina are well maintained. There is no significant compressive discop athy. The facet and uncovertebral joints are unremarkable. At C5-C6, there is a right paracentral disc protrusion deforming the thecal sac without cord contact. This is narrowing the exiting foramina at this level. The facet and uncovertebral joints are unremar kable. At C6-7 and C7-T1, no definite abnormality is seen. IMPRESSION: 1. NO EVIDENCE OF MS PLAQUE. 2. RIGHT PARACENTRAL DISCOGENIC, C5-6 DEFORMING THE THECAL SAC WITHOUT CORD CONTACT BUT CAUSING RIGHT -SIDED INTERVERTEBRAL FORAMINAL NARROWING AT THIS LEVEL. THIS REPRESENTS AN INTERVAL CHANGE.
[2018-01-24] MEDS: SODIUM CHLORIDE 0.9% 1,000 ML IV SCH ×2 (12:32→22:59)
--- NOTE | 2018-01-24 15:13 | P.PN ---
Subjective Progress Note Date: 01/24/18 The patient is a 42-year-old woman with history of MS. She is in the hospital with MS exacerbation due to weakness in the legs. The patient had an MRI of the brain today which was normal. Also she had an MRI of the cervical spine which showed a cervical disc bulge. Patient has a history of numbness and Curry in the hands and legs. We have requested records from her past neurologist. Not have records as yet. The patient has no new complaints. He states she was able to stand and get to the commode today. Objective - Vital Signs Vital signs: Vital Signs Temp 98.3 F 01/24/18 14:20 Pulse 78 01/24/18 14:20 Resp 16 01/24/18 14:20 BP 96/58 01/24/18 14:20 Pulse Ox 96 01/24/18 14:20 Intake & Output 01/23/18 01/24/18 01/24/18 18:59 06:59 18:59 Intake Total 640 Balance 640 Intake: Oral 640 Other: Voiding Method Bedside Commode # Voids 2 2 1 - Constitutional General appearance: Present: average body habitus - Respiratory Respiratory: bilateral: CTA - Cardiovascular Rhythm: regular - Neurologic Neurologic Comment(s): Neurologic examination: Mental status: She was awake alert and oriented. There was no a aphasia or dysarthria. Next Cranial nerve examination: Cranial nerves II through XII grossly intact next Motor examination: She had some give way type weakness in both lower extremities next Sensory examination: Variable distribution loss of pinprick in the legs Deep tendon reflexes 2+ and symmetric - Labs CBC & Chem 7: 01/22/18 18:15 01/22/18 18:15 Labs: Abnormal Lab Results - Last 24 Hours (Table) 01/23/18 01/23/18 01/24/18 Range/Units 17:19 20:41 06:58 POC Glucose (mg/dL) 232 H 149 H 153 H (75-99) mg/dL 01/24/18 Range/Units 12:09 POC Glucose (mg/dL) 166 H (75-99) mg/dL Microbiology - Last 24 Hours (Table) 01/22/18 19:48 Urine Culture - Final Urine,Voided 01/22/18 18:15 Blood Culture - Preliminary Blood No Growth after 24 hours Assessment and Plan (1) Exacerbation of multiple sclerosis Current Visit: No Status: Acute SNOMED Code(s): 612947709 Plan: The patient is a 40-year-old woman who has a reported history of multiple sclerosis. She presented to the emergency room complaining of leg weakness and tingling. Continue IV Solu-Medrol. She has had an MRI of the brain and cervical spine which does not explain her leg weakness. Will also do MRI of the lumbar spine. Recommend physical therapy.
[2018-01-24 17:08] LABS: Glucose,Whole Blood 155 mg/dL (75-99)
[2018-01-24 20:35] LABS: Glucose,Whole Blood 181 mg/dL (75-99)
--- NOTE | 2018-01-24 22:23 | MR ---
EXAMINATION TYPE: MR lumbar spine wo con DATE OF EXAM: 01/24/2018 COMPARISON: 07/13/2014 HISTORY: Numbness. Back pain TECHNIQUE: Multiplanar, multisequence images of the lumbar spine were acquired. The vertebra have normal alignment. There is slight narrowing and decreased signal in the disks at L4 -5 L5-S1. There is no compression fracture. Lumbar nerve roots appear normal. There is no spinal sten osis. There is small posterior disc bulging at L4-5 and L5-S1 without compromise of the spinal canal. I see no lumbar paraspinal mass. Posterior elements are intact. There is no evidence of focal bony d estructive process. IMPRESSION: Spondylotic changes in the lower lumbar spine at L4-5 L5-S1. There is decrease in size of the posteri or disc herniation at L4-5 compared to old exam and consistent with desiccation. No change in small d isc bulge at L5-S1. No spinal stenosis.
[2018-01-24] MEDS: MELATONIN 5 MG TABLET PO PRN (23:10)
[2018-01-25] MEDS: methylPREDNISolone SOD SUCCI 250 MG in SODIUM CHLORIDE 0.9% 100 ML IVPB SCH ×4 (05:20→23:40)
[2018-01-25 06:17] VITALS: RESP 16
[2018-01-25 07:13] LABS: Glucose,Whole Blood 144 mg/dL (75-99)
[2018-01-25] MEDS: HEPARIN SODIUM,PORCINE 5,000 UNIT/ML 1 ML VIAL SQ SCH ×3 (07:44→23:40)
[2018-01-25] MEDS: PANTOPRAZOLE 40 MG TABLET PO SCH (07:44)
[2018-01-25] MEDS: INSULIN ASPART 100 UNIT/ML 1 ML 10 ML VIAL SQ SCH ×4 (07:44→21:16)
[2018-01-25] MEDS: SODIUM CHLORIDE 0.9% 1,000 ML IV SCH ×3 (07:49→23:40)
[2018-01-25 11:54] LABS: Glucose,Whole Blood 142 mg/dL (75-99)
--- NOTE | 2018-01-25 13:38 | P.PN ---
Subjective Progress Note Date: 01/25/18 Principal diagnosis: weakness Patient is a 42-year-old female with a past medical history of migraine headaches, chronic low back pain, and multiple sclerosis who presented to the emergency department with complaints of lower extremity weakness. In the emergency department she was found to be slightly tachycardic with a heart rate of 118. Initial laboratory analysis was normal. UA was concentrated but no definitive signs of infection. Chest x-ray showed no acute process. Per records neurology was contacted by the emergency department the patient was started on IV steroids. She is admitted for possible multiple sclerosis flare. Seen by neurology, MRI brain negative, MRI lumbar spine without significant disease. Patient seen and examined at bedside. Patient continues to complain of bilateral lower extremity weakness and states she is unable to stand on her own or perform her activities of daily living. We discussed possible conversion disorder with lack of evidence of disease on MRI Brain, Cervical spine, and Lumbar spine to account for disease. Patient is reluctant to stop IV steroids without first speaking with neurology, she then states that she is not getting the typical energy boost she normally receives from them. Objective - Vital Signs Vital signs: Vital Signs Temp 98.6 F 01/25/18 06:15 Pulse 57 L 01/25/18 06:15 Resp 16 01/25/18 06:15 BP 108/66 01/25/18 06:15 Pulse Ox 93 L 01/25/18 06:15 Intake & Output 01/24/18 01/25/18 01/25/18 18:59 06:59 18:59 Other: # Voids 1 1 - Exam General: non toxic, no distress, appears at stated age Derm: warm, dry Head: atraumatic, normocephalic, symmetric Eyes: EOMI, no lid lag, anicteric sclera Mouth: no lip lesion, mucus membranes moist Cardiovascular: S1S2 reg, no murmur, positive posterior tibial pulse bilateral, Lungs: CTA bilateral, no rhonchi, no rales , no accessory muscle use Abdominal: soft, nontender to palpation, no guarding, no appreciable organomegaly Ext: no gross muscle atrophy, no edema, no contractures Neuro: CN II-XI grossly intact, sits up without difficulty when leg raised she is able to hold them up after asking twie and telling her she can do better but then complains of back pain. Psych: Alert, oriented,anxious - Labs CBC & Chem 7: 01/22/18 18:15 01/22/18 18:15 Labs: Abnormal Lab Results - Last 24 Hours (Table) 01/24/18 01/24/18 01/25/18 Range/Units 17:05 20:34 07:08 POC Glucose (mg/dL) 155 H 181 H 144 H (75-99) mg/dL 01/25/18 Range/Units 11:48 POC Glucose (mg/dL) 142 H (75-99) mg/dL Microbiology - Last 24 Hours (Table) 01/22/18 18:15 Blood Culture - Preliminary Blood No Growth after 48 hours Assessment and Plan Assessment: Lower extremity weakness -Continue with Solu-Medrol 250mg every 6 hours until seen again by neurology - MRI brain and L spine without abnormalities, Suspect Conversion disorder. - neurology recs appreciated - PT eval - neurochecks - fall precautions - Psych consult if neurology in agreement for possible conversion disorder. GERD - PPI - prn tums Chronic low back pain - toradol Tobacco abuse - cessation - does not want nicotine replacement DVT prophylaxis: Heparin Discussed with: Patient, nursing Anticipated discharge: [address]: home A total of 35 minutes was spent on the care of this complex patient more than 50 % of the time was spent in counseling and care coordination.
[2018-01-25 16:48] LABS: Glucose,Whole Blood 143 mg/dL (75-99)
--- NOTE | 2018-01-25 17:40 | P.PN ---
Subjective Progress Note Date: 01/25/18 The patient is a 42-year-old woman admitted to the hospital with history of MS. She has not followed up with a physician for MS in over a year. She states that typically her MS exacerbation consists of weakness in the legs. She has had IV steroids for 3 days and she reports no improvement. She denies any numbness in the legs. She does have chronic tingling in the hands. She's had an MRI of the brain which was normal as well as an MRI of the cervical spine which showed only a cervical disc bulge. She had an MRI of the lumbar spine which showed improvement of a disc bulge since 2015. The patient states that when she stands she feels her hips and knees give out. She is unable to walk to the bathroom. She is using a bedside commode. She has no sensory findings or symptoms in her legs and her reflexes are intact. We are awaiting spinal fluid results from Dr. De León her previous neurologist. Objective - Vital Signs Vital signs: Vital Signs Temp 98.4 F 01/25/18 15:00 Pulse 55 L 01/25/18 15:00 Resp 16 01/25/18 15:00 BP 104/64 01/25/18 15:00 Pulse Ox 93 L 01/25/18 15:00 Intake & Output 01/24/18 01/25/18 01/25/18 18:59 06:59 18:59 Other: # Voids 1 1 3 - Constitutional General appearance: Present: average body habitus - EENT Eyes: Present: PERRLA ENT: Present: hearing grossly normal - Respiratory Respiratory: bilateral: CTA - Cardiovascular Rhythm: regular - Neurologic Neurologic Comment(s): Neurologic examination: Mental status: She was awake alert and oriented 3. Her speech was fluent. There is no a aphasia or dysarthria. Next Cranial nerves II through XII: Were grossly intact next Motor examination in upper extremities 5 out of 5 in the lower extremity she was able to lift both legs up against gravity next Deep tendon reflexes were 2+ and symmetric Sensory examination intact to light touch Gait: Could not be tested - Labs CBC & Chem 7: 01/22/18 18:15 01/22/18 18:15 Labs: Abnormal Lab Results - Last 24 Hours (Table) 01/24/18 01/25/18 01/25/18 Range/Units 20:34 07:08 11:48 POC Glucose (mg/dL) 181 H 144 H 142 H (75-99) mg/dL 01/25/18 Range/Units 16:42 POC Glucose (mg/dL) 143 H (75-99) mg/dL Microbiology - Last 24 Hours (Table) 01/22/18 18:15 Blood Culture - Preliminary Blood No Growth after 48 hours Assessment and Plan (1) Exacerbation of multiple sclerosis Current Visit: No Status: Acute SNOMED Code(s): 593459267 Plan: The patient is a 40-year-old woman who has a reported history of multiple sclerosis. She presented to the emergency room complaining of leg weakness and tingling. She denies any numbness in the legs currently. Her main complaint is that when she stands her hip and knees give out on her. Her deep tendon reflexes are intact. She reports no improvement in her leg strength in spite of IV steroids There is no indication of demyelination on her imaging studies. Recommend possible transfer to [facility] for unexplained leg weakness
[2018-01-25 20:45] LABS: Glucose,Whole Blood 151 mg/dL (75-99)
[2018-01-26] MEDS: methylPREDNISolone SOD SUCCI 250 MG in SODIUM CHLORIDE 0.9% 100 ML IVPB SCH ×2 (05:00→12:39)
[2018-01-26 06:42] VITALS: BP 116/65; PULSE 54; TEMP 97.8
[2018-01-26 07:04] LABS: Glucose,Whole Blood 149 mg/dL (75-99)
[2018-01-26] MEDS: PANTOPRAZOLE 40 MG TABLET PO SCH (07:42)
[2018-01-26] MEDS: INSULIN ASPART 100 UNIT/ML 1 ML 10 ML VIAL SQ SCH ×2 (07:43→12:39)
[2018-01-26] MEDS: HEPARIN SODIUM,PORCINE 5,000 UNIT/ML 1 ML VIAL SQ SCH (07:43)
[2018-01-26 12:20] LABS: Glucose,Whole Blood 134 mg/dL (75-99)
--- NOTE | 2018-01-26 21:30 | DS ---
DISCHARGE SUMMARY DATE OF ADMISSION: 01/22/18. DATE OF TRANSFER: 01/26/18. FINAL DIAGNOSES: 1. Bilateral lower extremity paresis causing severe gait dysfunction, cause unknown. 2. Hyperglycemia secondary to steroids. 3. Contaminated urine sample. HOSPITAL COURSE: This is a 42-year-old patient who had a questionable diagnosis of multiple sclerosis in the [place] area and because of insurance reasons, patient did not follow up. The patient was seen by the local neurologist Dr. Hankins as an outpatient. The patient did have a lumbar puncture and MRI. Multiple sclerosis was ruled out. The patient at the baseline states that she has trouble walking is to hold on to things and walk. Presents with increasing lower extremity muscle spasms, more difficulty in walking. The patient did undergo a lumbar spine MRI. There was mild spondylitic changes in the lumbar level with no obvious spinal cord compression. The patient also had cervical and brain MRI. There is some right paracentral disc in the neck C5-C6 deforming the thecal sac without any cord contact with some right-sided intervertebral foramina narrowing. This admission patient was seen and by neurologist, Dr. Inna Freeman and she thought patient may have had a conversion disorder. Because patient is still weak and could only use a bedside commode, recommended to be transferred to [facility] for higher level of care and further investigations. PHYSICAL EXAMINATION: Temperature 97.8, pulse 54, respirations 16, blood pressure 116/75, pulse 94 percent room air. Power in the lower extremity 3/5. Sensation grossly preserved. Reflexes equal and symmetrical on both the sides. I spoke to the admitting medical office at [facility] and discussed the care. Also discussed the care with the patient. The patient had concerns about a 15-year-old daughter at home but did understand the need for importance to going to a higher level of care as she was given the IV steroids and yet really did not help her much. Hence patient is going to get transferred and has been accepted to [facility]. Discussion and discharge planning more than 35 minutes. DISCHARGE MEDICATIONS: Tylenol p.r.n. at home. DISPOSITION: [facility] with neurology consult at [facility]. MMODL / IJN: [id number] /
--- NOTE | 2018-01-29 10:14 | CDI ---
Last Revision, February 2017 Documentation Clarification Form Date: 01/29/18 From: Maty Jeb Rachna Conrad, Cocktail Waitress Hours-8:30 am & 5 pm M-F Admit Date: 01/24/2018 1:50:00 PM Patient Name: Bettye Huang Visit Number: [id number] Discharge Date: 01/26/18 ATTENTION: The Clinical Documentation Specialists (CDI) and [facility] Coding Staff appreciate your assistance in clarifying documentation. Please respond to the clarification below the line at the bottom and electronically sign. The CDI & [facility] Coding staff will review the response and follow-up if needed. Please note: Queries are made part of the Legal Health Record. If you have any questions, please contact the author of this message via ITS. Mehul Lawrence MD Patient presented with bilateral leg weakness. Final discharge diagnosis is bilateral lower extremity paresis causing severe gait dysfunction, cause unknown . According to the discharge narrative, MS was ruled out. Neurology thought patient may have had a conversion disorder. MRI of spine revealed lumbar spondylitic changes and disc displacement and narrowing of foramina at C5 -C6. Patient transferred to [facility]. For accuracy of reporting, please clarify the likely or possible cause (s) of the patients weakness/paresis: ---Conversion disorder ---Lumbar spondylitic changes ---Cervical disc displacement and/or foramina narrowing --- All of the above ( have not been ruled out) ----Other ----Unable to determine Please continue to document in your progress notes and discharge summary in order to capture severity of illness and risk of mortality. Include clinical findings that support your diagnosis. unable to determine; therefore pt transfered to tertiary center [facility]
== END 2018-01-26 13:47 | disposition short-term general hospital (02) | DRG 53 ==
LOC: EC 16:42 → 4MS4W 20:37 → OBSVTOIN 01-24 13:50
PROVIDERS: ADMIT Hospitalist; ATTEND Hospitalist
DX: G82.20 Paraplegia, unspecified (principal); F44.4 Conversion disorder with motor symptom or deficit; M50.222 Other cervical disc displacement at C5-C6 level; G62.9 Polyneuropathy, unspecified; T38.0X5A Adverse effect of glucocorticoids and synthetic analogues, initial encounter; R73.9 Hyperglycemia, unspecified; K21.9 Gastro-esophageal reflux disease without esophagitis; M51.26 Other intervertebral disc displacement, lumbar region; G89.29 Other chronic pain; G43.909 Migraine, unspecified, not intractable, without status migrainosus; M19.91 Primary osteoarthritis, unspecified site; M53.3 Sacrococcygeal disorders, not elsewhere classified; H57.9 Unspecified disorder of eye and adnexa; F17.210 Nicotine dependence, cigarettes, uncomplicated; Z71.6 Tobacco abuse counseling; Z86.14 Personal history of Methicillin resistant Staphylococcus aureus infection; Z87.01 Personal history of pneumonia (recurrent); Z98.51 Tubal ligation status; Z82.49 Family history of ischemic heart disease and other diseases of the circulatory system; Z82.69 Family history of other diseases of the musculoskeletal system and connective tissue; Z82.3 Family history of stroke
CPT/HCPCS: 36415; 70551; 71046; 72141; 72148; 80053; 81001; 82550; 82553; 84484; 85025; 85610; 85730; 87040; 87086; 93005; 96365; 99284

== ENCOUNTER 2018-04-23 15:42 | Emergency (ER) | payer MEDICARE, OTHER ==
[2018-04-23 15:48] VITALS: BP 124/63; PULSE 94; RESP 18; TEMP 97.9
[2018-04-23] MEDS ORDERED: DIPH,PERTUS(ACELL)TETVAC-LF 0.5 ML VIAL IM ONE (16:22)
[2018-04-23] MEDS ORDERED: LIDOCAINE 1% INJ 10MG/ML (20 ML MDV) SQ STA (16:26)
--- NOTE | 2018-04-23 16:30 | XR ---
Right hand HISTORY: Laceration 3 views of the right hand Bone mineralization, joint spaces and alignment are maintained. No radiographic foreign body. IMPRESSION: No fracture or dislocation.
--- NOTE | 2018-04-23 16:30 | ED ---
General Adult HPI - General Chief complaint: Wound/Laceration Stated complaint: Laceration Time Seen by Provider: 04/23/18 15:51 Source: patient, RN notes reviewed, old records reviewed Mode of arrival: EMS Limitations: no limitations - History of Present Illness Initial comments: 43-year-old female patient with past history of multiple sclerosis presents ED today with laceration on her right hand between her second and third digits. Patient was reportedly using a utensil to cut clothing when this occurred. Patient denies any other injury. Patient reports for range of motion of all digits. Patient doesn't know date of last tetanus, will updated today. Patient denies other complaints. Systemic: Pt denies fatigue, fever/chills, rash. Pt denies weakness, night sweats, weight loss. Neuro: Pt denies headache, visual disturbances, syncope or pre-syncope. HEENT: Pt denies ocular discharge or irritation, otalgia, rhinorrhea, pharyngitis or notable lymphadenopathy. Cardiopulmonary: Pt denies chest pain, SOB, heart palpitations, dyspnea on exertion. Abdominal/GI: Pt denies abdominal pain, n/v/d. : Pt denies dysuria, burning w/ urination, frequency/urgency. Denies new onset urinary or bowel incontinence. MSK: Pt denies loss of strength or function in extremities. Neuro: Pt denies new onset weakness, paresthesias. - Related Data Home Medications Medication Instructions Recorded Confirmed Acetaminophen [Tylenol Extra 1,000 mg PO TID PRN 01/22/18 01/22/18 Strength] Previous Rx's Medication Instructions Recorded Cephalexin [Keflex] 500 mg PO Q12HR 6 Days #6 cap 04/23/18 Allergies Allergy/AdvReac Type Severity Reaction Status Date / Time No Known Allergies Allergy Verified 04/23/18 15:43 Review of Systems ROS Statement: Those systems with pertinent positive or pertinent negative responses have been documented in the HPI. ROS Other: All systems not noted in ROS Statement are negative. Past Medical History Past Medical History: GERD/Reflux, Musculoskeletal Disorder, Neurologic Disorder , Pneumonia Additional Past Medical History / Comment(s): ms. herniated disc and calcified disc as well as bulging disc L4-L5, DJD, chronic back pain, pleurisy, generalized neuropathy per pt, migraines.occ fuzzy vision. History of Any Multi-Drug Resistant Organisms: MRSA Date of last positivie culture/infection: 2010 MDRO Source:: R leg Past Surgical History: Tubal Ligation Additional Past Surgical History / Comment(s): LP's, wisdom teeth extraction. Past Anesthesia/Blood Transfusion Reactions: No Reported Reaction Additional Past Anesthesia/Blood Transfusion Reaction / Comment(s): Pt states she has never received blood. Past Psychological History: PTSD Smoking Status: Current every day smoker Past Alcohol Use History: None Reported Past Drug Use History: Marijuana - Past Family History Father Family Medical History: Myocardial Infarction ([place]) Mother Family Medical History: CVA/TIA, Fibromyalgia Additional Family Medical History / Comment(s): mva as teenager, murmur, 2007 (medication abuse) General Exam - General Exam Comments Initial Comments: Constitutional: NAD, AOX3, Pt has pleasant affect. HEENT: NC/AT, trachea midline, neck supple, no lymphadenopathy. Posterior pharynx non erythematous, without exudates. External ears appear normal, without discharge. Mucous membranes moist. Eyes PERRLA, EOM intact. There is no scleral icterus. No pallor noted. Cardiopulmonary: RRR, no murmurs, rubs or gallops, no JVD noted. Lungs CTAB in anterior and posterior diamond. No peripheral edema. Abdominal exam: Abdomen soft and non-distended. Abdomen non-tender to palpation in all 4 quadrants. Bowel sounds active in LLQ. No hepatosplenomegaly. No ecchymosis Neuro: CN II-XII grossly intact. No nuchal rigidity. MSK: Approximately 2 cm laceration noted between the second and third digits. Patient has full range of motion of digits. Full range of motion of MCP, PIP, DIP intact in all digits. Sensation intact. Capillary refill less than 2 seconds. No posterior calf tenderness bilaterally, homans sign negative bilaterally. Posterior tibialis and radial pulse +2 bilaterally. Sensation intact in upper and lower extremities. Full active ROM in upper and lower extremities, 5/5 stregnth. Limitations: no limitations Course Vital Signs 04/23/18 15:43 Temperature 97.9 F Pulse Rate 94 Respiratory 18 Rate Blood Pressure 124/63 O2 Sat by Pulse 96 Oximetry Procedures - Laceration Laceration #1 Consent Obtained: verbal consent Indication: laceration Site: hand (L hand interwebbing between second and third digit) Size (cm): 2 Description: linear Depth: simple, single layer Anesthetic Used: lidocaine 1% Anesthesia Technique: local infiltration Amount (mls): 6 Pre-repair: wound explored, irrigated extensively (500 mL NS ), deep structures intact (no foreign body, bony or ligamentous involvement ) Type of Sutures: nylon Size of Sutures: 5-0 Number of Sutures: 3 Technique: simple, interrupted Patient Tolerated Procedure: well, no complications Medical Decision Making - Medical Decision Making 43-year-old female patient with past history of multiple sclerosis presents ED today with laceration on her right hand between her second and third digits. Patient was reportedly using a utensil to cut clothing when this occurred. Patient denies any other injury. Patient reports for range of motion of all digits. Patient doesn't know date of last tetanus, will updated today. Patient denies other complaints. VSS, afebrile. Physical exam displayed: Approximately 2 cm laceration noted between the second and third digits. Patient has full range of motion of digits. Full range of motion of MCP, PIP, DIP intact in all digits. Plain films displayed no acute process. Laceration was closed with 3 simple interrupted sutures. Patient tired procedure well. Patient to return in 7-10 days for suture removal. Patient is given signs symptoms of infection, verbalized understanding. Patient to follow with primary care provider in 1-2 days. Patient to return to ED if new signs symptoms develop or if condition worsens in anyway. Case discussed with Dr. Garcia. Pt tetanus updated. Disposition Clinical Impression: Laceration Disposition: HOME SELF-CARE Condition: Stable Instructions (If sedation given, give patient instructions): Care For Your Stitches (ED), Laceration (ED) Additional Instructions: Patient to adhere to previously discussed treatment plan and will take medication(s) as directed. Patient to follow up with PCP in 1-2 days. Patient to return to ED if symptoms do not improve. Please return for suture removal: Hand: 7-10 days Face: 5 days Chest/abdomen: 12-14 days Extremities: 7-10 days Scalp: 7 days Eyebrow: 5-7 days Foot/sole: 12-14 days Please monitor for signs and symptoms of infection including: redness, warmth, drainage, discharge. Please return to ED if these signs or symptoms occur, new signs or symptoms develop or if condition worsens in anyway. Prescriptions: Cephalexin [Keflex] 500 mg PO Q12HR 6 Days #6 cap Is patient prescribed a controlled substance at d/c from ED?: No Referrals: Walter Santiago MD [Primary Care Provider] - 1-2 days Time of Disposition: 18:15
== END 2018-04-23 18:21 | disposition home or self-care (01) ==
LOC: EC 15:42
DX: S61.411A Laceration without foreign body of right hand, initial encounter (principal); F17.200 Nicotine dependence, unspecified, uncomplicated; Z86.14 Personal history of Methicillin resistant Staphylococcus aureus infection; Z86.69 Personal history of other diseases of the nervous system and sense organs; Z23 Encounter for immunization; W27.8XXA Contact with other nonpowered hand tool, initial encounter; Y93.89 Activity, other specified
CPT/HCPCS: 73130; 90715; 99284; 12001; 90471; J2001

== ENCOUNTER 2020-12-26 15:23 | Emergency (ER) | payer MEDICARE, OTHER ==
[2020-12-26 15:32] VITALS: BP 128/80; PULSE 88; RESP 20
[2020-12-26] MEDS ORDERED: SODIUM CHLORIDE 0.9% 1,000 ML IV STA (16:59)
--- NOTE | 2020-12-26 17:11 | ED ---
General Adult HPI - General Chief complaint: Weakness Stated complaint: MS flare up Time Seen by Provider: 12/26/20 16:19 Source: patient Mode of arrival: ambulatory Limitations: no limitations - History of Present Illness Initial comments: 45-year-old female with a past medical history of multiple sclerosis, herniated disc, bulging disks presents to the emergency room for a chief complaint of bilateral leg weakness. Patient has had bilateral leg weakness and worsening for the past couple days. States this feels a previous MS flare. Patient state s the last time this happened she was in a wheelchair for a year because she missed the window for steroids to help her. Patient has been on MS medication before but has not been on it for quiet some time because "life happens." Pt states she has not followed up with a neurologist in years. Of systems - Related Data Home Medications Medication Instructions Recorded Confirmed Acetaminophen [Tylenol Extra 1,000 mg PO TID PRN 01/22/18 01/22/18 Strength] Previous Rx's Medication Instructions Recorded Cephalexin [Keflex] 500 mg PO Q12HR 6 Days #6 cap 04/23/18 predniSONE [Deltasone] 20 mg PO BID 7 Days #14 tab 12/26/20 Allergies Allergy/AdvReac Type Severity Reaction Status Date / Time No Known Allergies Allergy Verified 12/26/20 15:33 Review of Systems ROS Statement: Those systems with pertinent positive or pertinent negative responses have been documented in the HPI. ROS Other: All systems not noted in ROS Statement are negative. Past Medical History Past Medical History: GERD/Reflux, Musculoskeletal Disorder, Neurologic Disorder, Pneumonia Additional Past Medical History / Comment(s): ms. herniated disc and calcified disc as well as bulging disc L4-L5, DJD, chronic back pain, pleurisy, generalized neuropathy per pt, migraines.occ fuzzy vision. History of Any Multi-Drug Resistant Organisms: MRSA Date of last positivie culture/infection: 2010 MDRO Source:: R leg Past Surgical History: Tubal Ligation Additional Past Surgical History / Comment(s): LP's, wisdom teeth extraction. Past Anesthesia/Blood Transfusion Reactions: No Reported Reaction Additional Past Anesthesia/Blood Transfusion Reaction / Comment(s): Pt states she has never received blood. Past Psychological History: PTSD Smoking Status: Current some day smoker, Vaper Past Alcohol Use History: None Reported Past Drug Use History: Marijuana - Past Family History Father Family Medical History: Myocardial Infarction ([place]) Mother Family Medical History: CVA/TIA, Fibromyalgia Additional Family Medical History / Comment(s): mva as teenager, murmur, 2007 (medication abuse) General Exam Limitations: no limitations General appearance: alert, in no apparent distress Head exam: Present: atraumatic Eye exam: Present: normal appearance, PERRL, EOMI. Absent: scleral icterus, conjunctival injection ENT exam: Present: normal exam, mucous membranes moist Neck exam: Present: normal inspection, full ROM. Absent: tenderness Respiratory exam: Present: normal lung sounds bilaterally. Absent: respiratory distress, wheezes Cardiovascular Exam: Present: regular rate, normal rhythm, normal heart sounds GI/Abdominal exam: Present: soft, normal bowel sounds. Absent: distended, tenderness Neurological exam: Present: alert Course Vital Signs 12/26/20 12/26/20 15:30 17:27 Temperature 99.2 F Pulse Rate 88 Respiratory 20 Rate Blood Pressure 128/80 O2 Sat by Pulse 96 Oximetry Medical Decision Making - Medical Decision Making Vitals are stable. Patient is well-appearing. Strength is 5 out of 5 in lower extremities bilaterally. Patient is able to ambulate. CBC CMP was unremarkable. I discussed trying outpatient steroids after a dose here in the emergency room. Patient is agreeable to this. If this does not help with patient's symptoms she will return to the emergency room. - Lab Data Result diagrams: 12/26/20 17:08 12/26/20 17:08 Lab Results 12/26/20 12/26/20 Range/Units 17:08 17:08 WBC 8.2 (3.8-10.6) k/uL RBC 4.76 (3.80-5.40) m/uL Hgb 14.7 (11.4-16.0) gm/dL Hct 46.0 (34.0-46.0) % MCV 96.8 (80.0-100.0) fL MCH 30.9 (25.0-35.0) pg MCHC 31.9 (31.0-37.0) g/dL RDW 12.6 (11.5-15.5) % Plt Count 213 (150-450) k/uL MPV 8.0 Neutrophils % 68 % Lymphocytes % 22 % Monocytes % 5 % Eosinophils % 2 % Basophils % 1 % Neutrophils # 5.6 (1.3-7.7) k/uL Lymphocytes # 1.8 (1.0-4.8) k/uL Monocytes # 0.5 (0-1.0) k/uL Eosinophils # 0.2 (0-0.7) k/uL Basophils # 0.1 (0-0.2) k/uL Sodium 138 (137-145) mmol/L Potassium 4.1 (3.5-5.1) mmol/L Chloride 107 (98-107) mmol/L Carbon Dioxide 21 L (22-30) mmol/L Anion Gap 10 mmol/L BUN 12 (7-17) mg/dL Creatinine 0.71 (0.52-1.04) mg/dL Est GFR (CKD-EPI)AfAm >90 (>60 ml/min/1.73 sqM) Est GFR (CKD-EPI)NonAf >90 (>60 ml/min/1.73 sqM) Glucose 97 (74-99) mg/dL Calcium 9.3 (8.4-10.2) mg/dL Magnesium 2.0 (1.6-2.3) mg/dL Total Bilirubin 0.4 (0.2-1.3) mg/dL AST 22 (14-36) U/L ALT 12 (4-34) U/L Alkaline Phosphatase 73 (38-126) U/L Total Protein 7.3 (6.3-8.2) g/dL Albumin 4.5 (3.5-5.0) g/dL Disposition Clinical Impression: Weakness of both lower extremities Disposition: HOME SELF-CARE Condition: Good Instructions (If sedation given, give patient instructions): Multiple Sclerosis ([place]) Additional Instructions: Please take steroid as directed starting tomorrow morning. Please follow-up with primary care. Given any worsening symptoms return to the emergency room. Prescriptions: predniSONE [Deltasone] 20 mg PO BID 7 Days #14 tab Is patient prescribed a controlled substance at d/c from ED?: No Referrals: Ronel Knutson MD [REFERRING] - 1-2 days Time of Disposition: 18:47
[2020-12-26 17:19] LABS: Basophils # (A) 0.1 k/uL (0-0.2); Basophils % (A) 1 %; Eosinophils # (A) 0.2 k/uL (0-0.7); Eosinophils % (A) 2 %; HGB 14.7 gm/dL (11.4-16.0); Lymphocytes # (A) 1.8 k/uL (1.0-4.8); Lymphocytes % (A) 22 %; MCH 30.9 pg (25.0-35.0); MCHC 31.9 g/dL (31.0-37.0); MCV 96.8 fL (80.0-100.0); Monocytes # (A) 0.5 k/uL (0-1.0); Monocytes % (A) 5 %; Neutrophils # (A) 5.6 k/uL (1.3-7.7); Neutrophils % (A) 68 %; Platelet Count 213 k/uL (150-450); RBC 4.76 m/uL (3.80-5.40); RDW 12.6 % (11.5-15.5); WBC 8.2 k/uL (3.8-10.6)
[2020-12-26 17:28] VITALS: TEMP 99.2
[2020-12-26 17:28] LABS: ALT 12 U/L (4-34); AST 22 U/L (14-36); African American GFR (CKD) >90 (>60 ml/min/1.73 sqM); Albumin 4.5 g/dL (3.5-5.0); Alkaline Phosphatase 73 U/L (38-126); Anion Gap 10 mmol/L; Blood Urea Nitrogen 12 mg/dL (7-17); Calcium 9.3 mg/dL (8.4-10.2); Carbon Dioxide 21 mmol/L (22-30); Chloride 107 mmol/L (98-107); Glucose 97 mg/dL (74-99); Non-African American GFR(CKD) >90 (>60 ml/min/1.73 sqM); Potassium 4.1 mmol/L (3.5-5.1); Sodium 138 mmol/L (137-145); Total Bilirubin 0.4 mg/dL (0.2-1.3); Total Protein 7.3 g/dL (6.3-8.2)
[2020-12-26] MEDS ORDERED: methylPREDNISolone SOD SUCCI 125 MG/2 ML VIAL IV STA (18:42)
[2020-12-26 18:50] LABS: Appearance,Urine Clear (Clear); Bacteria,Urine Rare /hpf; Bilirubin,Urine Negative (Negative); Blood,Urine Negative (Negative); Color,Urine Light Yellow; Glucose,Urine (UA) Negative (Negative); Ketones,Urine 1+ (Negative); Leukocyte Esterase,Urine Large (Negative); Mucus,Urine Rare /hpf; Nitrite,Urine Negative (Negative); PH, Urine 5.5 (5.0-8.0); Protein,Urine Negative (Negative); RBC,Urine 2 /hpf (0-5); Squamous Epithelial Cell,Urine 1 /hpf (0-4); WBC,Urine 12 /hpf (0-5)
== END 2020-12-26 19:15 | disposition home or self-care (01) ==
LOC: EC 15:23
DX: R53.1 Weakness (principal); K21.9 Gastro-esophageal reflux disease without esophagitis; F17.290 Nicotine dependence, other tobacco product, uncomplicated; F12.90 Cannabis use, unspecified, uncomplicated; Z79.52 Long term (current) use of systemic steroids; Z82.49 Family history of ischemic heart disease and other diseases of the circulatory system
CPT/HCPCS: 36415; 80053; 83735; 85025; 81001; 81025; 87086; 99284; 96374; 96361; J2930

== ENCOUNTER → 2021-02-22 | Outpatient (CLI) | payer MEDICARE ==
[2021-02-22 23:47] LABS: HCT 45.4 % (37.2-46.3); HGB 14.2 g/dL (12.0-15.0); MCH 30.7 pg (27.0-32.0); MCHC 31.3 g/dL (32.0-37.0); MCV 98.1 fL (80.0-97.0); Mean Platelet Volume 12.3 fL (9.5-12.2); Platelet Count 221 X 10*3/uL (140-440); RBC 4.63 X 10*6/uL (4.10-5.20); WBC 6.79 X 10*3/uL (4.50-10.00)
[2021-02-23 04:08] LABS: ALT 10 U/L (8-44); AST 13 U/L (13-35); Albumin 4.8 g/dL (3.8-4.9); Albumin/Globulin Ratio 2.29 (1.60-3.17); Alkaline Phosphatase 68 U/L (41-126); BUN/Creat Ratio 10.71 Ratio (12.00-20.00); Blood Urea Nitrogen 7.5 mg/dL (9.0-27.0); Calcium 9.4 mg/dL (8.7-10.3); Chloride 105 mmol/L (96-109); Chol/HDL Ratio 2.58 Ratio; Globulin 2.1 g/dL (1.6-3.3); Glucose 117 mg/dL (70-110); LDL Cholesterol,Calculated 127.5 mg/dL (0.0-131.0); Non-African American GFR(CKD) 106.1 (60.0-200.0); Potassium 4.5 mmol/L (3.5-5.5); Sodium 139 mmol/L (135-145); Total Protein 6.9 g/dL (6.2-8.2); VLDL Calculation 12.16 mg/dL (5.00-40.00)
== END | disposition home or self-care (01) ==
LOC: LABWHC1 14:40
PROVIDERS: ATTEND Physician Assistant
DX: Z00.00 Encounter for general adult medical examination without abnormal findings (principal); G35 Multiple sclerosis
CPT/HCPCS: 36415; 80053; 80061; 83036; 84439; 84443; 85027

== ENCOUNTER 2021-02-25 16:04 | Emergency (ER) | payer MEDICARE ==
[2021-02-25 16:09] VITALS: TEMP 96.3
[2021-02-25] MEDS ORDERED: SODIUM CHLORIDE 0.9% 1,000 ML IV STA (17:41)
[2021-02-25] MEDS ORDERED: MORPHINE SULFATE 4 MG/ML SYRINGE IV STA (17:41)
[2021-02-25] MEDS ORDERED: ONDANSETRON 4 MG/2 ML VIAL IVP STA (17:41)
[2021-02-25 18:18] LABS: Basophils % (A) 0 %; Eosinophils % (A) 0 %; HCT 45.7 % (34.0-46.0); Lymphocytes # (A) 0.9 k/uL (1.0-4.8); Lymphocytes % (A) 8 %; MCHC 32.8 g/dL (31.0-37.0); MCV 100.7 fL (80.0-100.0); Mean Platelet Volume 9.3; Monocytes # (A) 0.3 k/uL (0-1.0); Monocytes % (A) 2 %; Neutrophils # (A) 10.2 k/uL (1.3-7.7); Neutrophils % (A) 89 %; Platelet Count 236 k/uL (150-450); RBC 4.54 m/uL (3.80-5.40); RDW 13.4 % (11.5-15.5); WBC 11.5 k/uL (3.8-10.6)
[2021-02-25 18:27] LABS: Potassium 4.5 mmol/L (3.5-5.1)
[2021-02-25 18:28] LABS: ALT 13 U/L (4-34); AST 18 U/L (14-36); African American GFR (CKD) >90 (>60 ml/min/1.73 sqM); Albumin 4.7 g/dL (3.5-5.0); Alkaline Phosphatase 61 U/L (38-126); Amylase 63 U/L (30-110); Anion Gap 12 mmol/L; Blood Urea Nitrogen 9 mg/dL (7-17); Calcium 9.5 mg/dL (8.4-10.2); Carbon Dioxide 22 mmol/L (22-30); Chloride 108 mmol/L (98-107); Glucose 116 mg/dL (74-99); Lipase 60 U/L (23-300); Non-African American GFR(CKD) >90 (>60 ml/min/1.73 sqM); Sodium 142 mmol/L (137-145); Total Bilirubin 0.2 mg/dL (0.2-1.3); Total Protein 7.7 g/dL (6.3-8.2)
[2021-02-25 18:44] LABS: Appearance,Urine Clear (Clear); Bacteria,Urine Rare /hpf; Bilirubin,Urine Negative (Negative); Blood,Urine Negative (Negative); Color,Urine Light Yellow; Glucose,Urine (UA) Negative (Negative); Ketones,Urine Negative (Negative); Leukocyte Esterase,Urine Moderate (Negative); Mucus,Urine Few /hpf; Nitrite,Urine Negative (Negative); PH, Urine 7.5 (5.0-8.0); Protein,Urine Negative (Negative); RBC,Urine 2 /hpf (0-5); Specific Gravity,Urine 1.007 (1.001-1.035); Squamous Epithelial Cell,Urine <1 /hpf (0-4); Urobilinogen,Urine <2.0 mg/dL (<2.0); WBC,Urine 15 /hpf (0-5)
[2021-02-25] MEDS ORDERED: cefTRIAXone IN SWFI 1,000 MG/10 ML SYRINGE IVP STA (19:40)
--- NOTE | 2021-02-25 19:44 | ED ---
Abdominal Pain HPI - General Chief Complaint: Abdominal Pain Stated Complaint: Stomach pain Time Seen by Provider: 02/25/21 17:40 Source: patient, RN notes reviewed Mode of arrival: wheelchair Limitations: no limitations - History of Present Illness Initial Comments: Patient is a 45-year-old female that presents to the emergency department complaining of abdominal pain with radiation to her left lower quadrant. Patient notes that she does have MS and recently had a flareup. She has not noticed that he can do with her abdominal pain. Patient notes that her diet has been consistent with no change in bowel habits or urination. Patient notes that she just has left lower quadrant pain and tenderness. Patient was otherwise well-appearing in no apparent distress. She denied any aggravating or alleviating factors at this time. She denied chest pain shortness of breath headache nausea vomiting diarrhea constipation fever fatigue chills. - Related Data Home Medications Medication Instructions Recorded Confirmed Acetaminophen [Tylenol Extra 1,000 mg PO TID PRN 01/22/18 01/22/18 Strength] Previous Rx's Medication Instructions Recorded Cephalexin [Keflex] 500 mg PO Q12HR 6 Days #6 cap 04/23/18 predniSONE [Deltasone] 20 mg PO BID 7 Days #14 tab 12/26/20 Sulfamethox-Tmp 800-160Mg [Bactrim 1 each PO Q12HR #14 tab 02/25/21 Ds] Allergies Allergy/AdvReac Type Severity Reaction Status Date / Time No Known Allergies Allergy Verified 02/25/21 16:09 Review of Systems ROS Statement: Those systems with pertinent positive or pertinent negative responses have been documented in the HPI. ROS Other: All systems not noted in ROS Statement are negative. Past Medical History Past Medical History: GERD/Reflux, Musculoskeletal Disorder, Neurologic Disorder, Pneumonia Additional Past Medical History / Comment(s): ms. herniated disc and calcified disc as well as bulging disc L4-L5, DJD, chronic back pain, pleurisy, generalized neuropathy per pt, migraines.occ fuzzy vision. History of Any Multi-Drug Resistant Organisms: MRSA Date of last positivie culture/infection: 2010 MDRO Source:: R leg Past Surgical History: Tubal Ligation Additional Past Surgical History / Comment(s): LP's, wisdom teeth extraction. Past Anesthesia/Blood Transfusion Reactions: No Reported Reaction Additional Past Anesthesia/Blood Transfusion Reaction / Comment(s): Pt states she has never received blood. Past Psychological History: PTSD Smoking Status: Current some day smoker, Vaper Past Alcohol Use History: None Reported Past Drug Use History: Marijuana - Past Family History Father Family Medical History: Myocardial Infarction ([place]) Mother Family Medical History: CVA/TIA, Fibromyalgia Additional Family Medical History / Comment(s): mva as teenager, murmur, 2007 (medication abuse) General Exam Limitations: no limitations General appearance: alert, in no apparent distress, obese Head exam: Present: atraumatic, normocephalic, normal inspection Eye exam: Present: normal appearance, PERRL, EOMI. Absent: scleral icterus, conjunctival injection, periorbital swelling ENT exam: Present: normal exam, mucous membranes moist Neck exam: Present: normal inspection Respiratory exam: Present: normal lung sounds bilaterally. Absent: respiratory distress, wheezes, rales, rhonchi, stridor Cardiovascular Exam: Present: regular rate, normal rhythm, normal heart sounds. Absent: systolic murmur, diastolic murmur, rubs, gallop, clicks GI/Abdominal exam: Present: soft, normal bowel sounds. Absent: distended, tenderness, guarding, rebound, rigid Extremities exam: Present: normal inspection, full ROM, normal capillary refill. Absent: tenderness, pedal edema, joint swelling, calf tenderness Neurological exam: Present: alert, oriented X3 Psychiatric exam: Present: normal affect, normal mood Skin exam: Present: warm, dry, intact, normal color. Absent: rash Course Vital Signs 02/25/21 02/25/21 16:05 20:13 Temperature 96.3 F L Pulse Rate 135 H 72 Respiratory 18 20 Rate Blood Pressure 164/78 99/67 O2 Sat by Pulse 97 97 Oximetry Medical Decision Making - Medical Decision Making 45-year-old female complaining of lower left quadrant abdominal pain. Labs, CT of the abdomen and pelvis, 4 mg of Zofran, 4 mg of morphine, 1 L normal saline ordered. Labs: CBC and CMP unremarkable, urinalysis shows several white blood cells, 1 g Rocephin ordered. Computed tomography scan negative for any acute process to shows multiple gallstones. Patient does have a urinary tract infection, antibiotics sent to pharmacy. Case discussed with Dr. Sun, patient discharge home. - Lab Data Result diagrams: 02/25/21 17:55 02/25/21 17:55 Lab Results 02/25/21 02/25/21 02/25/21 Range/Units 17:55 17:55 18:25 WBC 11.5 H (3.8-10.6) k/uL RBC 4.54 (3.80-5.40) m/uL Hgb 15.0 (11.4-16.0) gm/dL Hct 45.7 (34.0-46.0) % MCV 100.7 H (80.0-100.0) fL MCH 33.0 (25.0-35.0) pg MCHC 32.8 (31.0-37.0) g/dL RDW 13.4 (11.5-15.5) % Plt Count 236 (150-450) k/uL MPV 9.3 Neutrophils % 89 % Lymphocytes % 8 % Monocytes % 2 % Eosinophils % 0 % Basophils % 0 % Neutrophils # 10.2 H (1.3-7.7) k/uL Lymphocytes # 0.9 L (1.0-4.8) k/uL Monocytes # 0.3 (0-1.0) k/uL Eosinophils # 0.0 (0-0.7) k/uL Basophils # 0.0 (0-0.2) k/uL Sodium 142 (137-145) mmol/L Potassium 4.5 (3.5-5.1) mmol/L Chloride 108 H (98-107) mmol/L Carbon Dioxide 22 (22-30) mmol/L Anion Gap 12 mmol/L BUN 9 (7-17) mg/dL Creatinine 0.60 (0.52-1.04) mg/dL Est GFR (CKD-EPI)AfAm >90 (>60 ml/min/1.73 sqM) Est GFR (CKD-EPI)NonAf >90 (>60 ml/min/1.73 sqM) Glucose 116 H (74-99) mg/dL Calcium 9.5 (8.4-10.2) mg/dL Total Bilirubin 0.2 (0.2-1.3) mg/dL AST 18 (14-36) U/L ALT 13 (4-34) U/L Alkaline Phosphatase 61 (38-126) U/L Total Protein 7.7 (6.3-8.2) g/dL Albumin 4.7 (3.5-5.0) g/dL Amylase 63 (30-110) U/L Lipase 60 (23-300) U/L Urine Color Light Yellow Urine Appearance Clear (Clear) Urine pH 7.5 (5.0-8.0) Ur Specific [place] 1.007 (1.001-1.035) Urine Protein Negative (Negative) Urine Glucose (UA) Negative (Negative) Urine Ketones Negative (Negative) Urine Blood Negative (Negative) Urine Nitrite Negative (Negative) Urine Bilirubin Negative (Negative) Urine Urobilinogen <2.0 (<2.0) mg/dL Ur Leukocyte Esterase Moderate H (Negative) Urine RBC 2 (0-5) /hpf Urine WBC 15 H (0-5) /hpf Ur Squamous Epith Cells <1 (0-4) /hpf Urine Bacteria Rare H (None) /hpf Urine Mucus Few H (None) /hpf Urine HCG, Qual (Not Detectd) 02/25/21 Range/Units 18:25 WBC (3.8-10.6) k/uL RBC (3.80-5.40) m/uL Hgb (11.4-16.0) gm/dL Hct (34.0-46.0) % MCV (80.0-100.0) fL MCH (25.0-35.0) pg MCHC (31.0-37.0) g/dL RDW (11.5-15.5) % Plt Count (150-450) k/uL MPV Neutrophils % % Lymphocytes % % Monocytes % % Eosinophils % % Basophils % % Neutrophils # (1.3-7.7) k/uL Lymphocytes # (1.0-4.8) k/uL Monocytes # (0-1.0) k/uL Eosinophils # (0-0.7) k/uL Basophils # (0-0.2) k/uL Sodium (137-145) mmol/L Potassium (3.5-5.1) mmol/L Chloride (98-107) mmol/L Carbon Dioxide (22-30) mmol/L Anion Gap mmol/L BUN (7-17) mg/dL Creatinine (0.52-1.04) mg/dL Est GFR (CKD-EPI)AfAm (>60 ml/min/1.73 sqM) Est GFR (CKD-EPI)NonAf (>60 ml/min/1.73 sqM) Glucose (74-99) mg/dL Calcium (8.4-10.2) mg/dL Total Bilirubin (0.2-1.3) mg/dL AST (14-36) U/L ALT (4-34) U/L Alkaline Phosphatase (38-126) U/L Total Protein (6.3-8.2) g/dL Albumin (3.5-5.0) g/dL Amylase (30-110) U/L Lipase (23-300) U/L Urine Color Urine Appearance (Clear) Urine pH (5.0-8.0) Ur Specific [place] (1.001-1.035) Urine Protein (Negative) Urine Glucose (UA) (Negative) Urine Ketones (Negative) Urine Blood (Negative) Urine Nitrite (Negative) Urine Bilirubin (Negative) Urine Urobilinogen (<2.0) mg/dL Ur Leukocyte Esterase (Negative) Urine RBC (0-5) /hpf Urine WBC (0-5) /hpf Ur Squamous Epith Cells (0-4) /hpf Urine Bacteria (None) /hpf Urine Mucus (None) /hpf Urine HCG, Qual Not Detected (Not Detectd) - Radiology Data Radiology results: report reviewed, image reviewed CT of the abdomen and pelvis: Multiple gallstones. No dilated ducts. I do not see a cause for left side pain. There is very small amount of low density free fluid in the pelvis. Disposition Clinical Impression: Abdominal pain, Urinary tract infection Disposition: HOME SELF-CARE Condition: Stable Instructions (If sedation given, give patient instructions): Abdominal Pain (ED) Additional Instructions: Please return to the Emergency Department if symptoms worsen or any other concerns. Follow-up with primary care in 1-2 days. Take antibiotics as prescribed until complete. Take Tylenol and Motrin as needed for pain. Is patient prescribed a controlled substance at d/c from ED?: No Referrals: Jayla Sun DO [Primary Care Provider] - 1-2 days Time of Disposition: 20:25
[2021-02-25 20:13] VITALS: BP 99/67; PULSE 72; RESP 20
--- NOTE | 2021-02-25 20:15 | CT ---
EXAMINATION TYPE: CT abdomen pelvis w con DATE OF EXAM: 02/25/2021 COMPARISON: None HISTORY: Left sided abdominal pain. CT DLP: 952.1 mGycm Automated exposure control for dose reduction was used. CONTRAST: Performed with IV Contrast, patient injected with 100 mL of Isovue 300. Images obtained from the diaphragm to the floor the pelvis with IV contrast. Lung bases are clear. There is no pleural effusion. Heart size is normal. There is no pericardial eff usion. Liver spleen pancreas stomach appear intact. The bile ducts are not dilated. There are multiple calci fied gallstones. Gallbladder has normal size. There is no adrenal mass. Kidneys show satisfactory contrast opacification. There is no hydronephrosi s. Ureters are not dilated. There is no retroperitoneal adenopathy. Bladder distends smoothly. Uterus is anteverted. There is no pelvic mass. There is small amount of free fluid in the pelvis with low a ttenuation. There is no mesenteric edema. There is no ascites or free air. There is no bowel obstruction. Appendi x partly seen and appears normal. The lumbar vertebra have normal alignment. Posterior elements are intact. There is no compression fra cture. Bony pelvis is intact. The hip joints are intact. IMPRESSION: Multiple gallstones. No dilated ducts. I do not see a cause for left side pain. There is very small a mount of low-density free fluid in the pelvis.
== END 2021-02-25 21:34 | disposition home or self-care (01) ==
LOC: EC 16:04
DX: N39.0 Urinary tract infection, site not specified (principal); K21.9 Gastro-esophageal reflux disease without esophagitis; F43.21 Adjustment disorder with depressed mood; F17.200 Nicotine dependence, unspecified, uncomplicated; F12.90 Cannabis use, unspecified, uncomplicated; Z98.51 Tubal ligation status
CPT/HCPCS: 99284; 96374; 96375 ×2; 36415; 80053; 82150; 83690; 85025; 81001; 81025; 87086; 74177; J2270; J2405; J0696; Q9967

== ENCOUNTER → 2021-04-24 | Outpatient (CLI) | payer MEDICARE ==
[2021-04-24 18:44] LABS: Hepatitis A Antibody IgM Nonreactive (Nonreactive); Hepatitis B Core IgM Nonreactive (Nonreactive); T4, Free (Free Thyroxine) 1.09 ng/dL (0.800-1.800)
[2021-04-24 18:45] LABS: Albumin 4.1 g/dL (3.8-4.9); Albumin/Globulin Ratio 1.75 (1.60-3.17); Anion Gap 12.8 mmol/L (10.00-18.00); BUN/Creat Ratio 11.82 Ratio (12.00-20.00); Blood Urea Nitrogen 9.1 mg/dL (9.0-27.0); Calcium 8.7 mg/dL (8.7-10.3); Carbon Dioxide 17.8 mmol/L (20.0-27.5); Globulin 2.3 g/dL (1.6-3.3); Non-African American GFR(CKD) 94.1 (60.0-200.0); Potassium 4.1 mmol/L (3.5-5.5); Total Bilirubin 0.3 mg/dL (0.30-1.20); Total Protein 6.4 g/dL (6.2-8.2)
[2021-04-24 19:20] LABS: Basophils # (A) 0.08 X 10*3/uL (0.00-0.10); Basophils % (A) 1.3 %; Eosinophils # (A) 0.18 X 10*3/uL (0.04-0.35); HCT 39.8 % (37.2-46.3); HGB 12.8 g/dL (12.0-15.0); Immature Grans, Automated 0.5 %; Lymphocytes # (A) 1.58 X 10*3/uL (0.90-5.00); Lymphocytes % (A) 26.1 %; MCH 31.1 pg (27.0-32.0); MCHC 32.2 g/dL (32.0-37.0); MCV 96.8 fL (80.0-97.0); Mean Platelet Volume 12.3 fL (9.5-12.2); Monocytes # (A) 0.62 X 10*3/uL (0.20-1.00); Monocytes % (A) 10.2 %; NRBC Per 100 WBC 0 /100 WBCS (0.0-0.0); Neutrophils # (A) 3.57 X 10*3/uL (1.80-7.70); Neutrophils % (A) 58.9 %; Platelet Count 232 X 10*3/uL (140-440); RBC 4.11 X 10*6/uL (4.10-5.20); RDW 13.8 % (11.5-14.5); WBC 6.06 X 10*3/uL (4.50-10.00)
[2021-04-25 11:23] LABS: HIV-1 RNA Not detected (Not detected); HIV-1 RNA, Quant <40 Copies/mL (<40); LOG HIV Copies/mL <1.60 (<1.60)
[2021-04-26 08:17] LABS: Vit B1(Thiamine) 57 ug/L (38-122)
== END | disposition home or self-care (01) ==
LOC: LABWHC1 11:29
PROVIDERS: ATTEND Psychiatry & Neurology Neurology
DX: Z01.812 Encounter for preprocedural laboratory examination (principal); Z51.81 Encounter for therapeutic drug level monitoring; G35 Multiple sclerosis
CPT/HCPCS: 36415; 80053; 82607; 83036; 84207; 84425; 84439; 84443; 84591; 85025; 86704; 86705; 86709; 87536; 93005

== ENCOUNTER → 2021-04-26 | Outpatient (CLI) | payer MEDICARE ==
--- NOTE | 2021-04-26 16:08 | US ---
EXAMINATION TYPE: US thyroid st tissue head/neck DATE OF EXAM: 04/26/2021 COMPARISON: US 06/08/15 CLINICAL HISTORY: E04.1 THYROID NODULE. f/u to previous GLAND SIZE: Right Lobe: 5.2 x 1.6 x 1.2 cm Overall Parenchyma: heterogenous Left Lobe: 6.0 x 1.7 x 1.4 cm Overall Parenchyma: heterogeneous Isthmus Thickness: 0.5 cm NODULES RIGHT: # of nodules measured on right: 1 1. 1.1 X 0.6 x 0.6 cm, upper lateral, solid or almost completely solid, hyperechoic nodule, which i s wider than tall, with smooth margins, without echogenic foci. Prior size: 0.8 x 0.6 x 0.9 cm LEFT: # of nodules measured on left: 3 1. 1.1 X 1.1 x 0.8 cm, mid mid, solid or almost completely solid, hyperechoic nodule, which is wide r than tall, with smooth margins, without echogenic foci. Prior size: 0.9 x 0.8 x 0.6cm 2. 1.2 X 0.9 x 0.6 cm, lower mid, solid or almost completely solid, hyperechoic nodule, which is w ider than tall, with smooth margins, without echogenic foci. Prior size: 1.1 x 0.6 x 0.4 cm cm 3. 1.3 X 1.1 x 0.7 cm, upper mid, solid or almost completely solid, isoechoic nodule, which is wide r than tall, with smooth margins, without echogenic foci. Prior size: 1.1 x 1.0 x 0.8 cm ISTHMUS: # of nodules measured in the isthmus: 0 Bilateral neck scanned, no evidence of lymphadenopathy. Multiple nodules seen bilaterally. Largest / previously measured nodules measured today. Heterogeneou s, vascular thyroid bilaterally IMPRESSION: Multiple thyroid nodules are similar in appearance to prior exam, consider follow-up
== END | disposition home or self-care (01) ==
LOC: RADUSWWP 12:28
PROVIDERS: ATTEND Psychiatry & Neurology Neurology
DX: E04.2 Nontoxic multinodular goiter (principal)
CPT/HCPCS: 76536

== ENCOUNTER → 2021-04-26 | Outpatient (CLI) | payer MEDICARE | END | disposition home or self-care (01) | LOC: LABWHC1 12:07 | PROVIDERS: ATTEND Psychiatry & Neurology Neurology | DX: Z53.9 Procedure and treatment not carried out, unspecified reason (principal) ==

== ENCOUNTER → 2021-05-03 | Outpatient (CLI) | payer MEDICARE ==
--- NOTE | 2021-05-04 12:48 | MM ---
Reason for exam: screening (asymptomatic). Baseline mammogram. History: Family history of breast cancer in maternal aunt. Physical Findings: Nurse did not find any significant physical abnormalities on exam. MG 3D Screening Mammo W/Cad Bilateral CC and MLO view(s) were taken. The breast tissue is heterogeneously dense. This may lower the sensitivity of mammography. There is no discrete abnormality. No significant changes when compared with prior studies. ASSESSMENT: Negative, BI-RAD 1 RECOMMENDATION: Routine screening mammogram of both breasts in 1 year.
== END | disposition home or self-care (01) ==
LOC: RADMAMWWP 11:10
PROVIDERS: ATTEND Family Medicine
DX: Z12.31 Encounter for screening mammogram for malignant neoplasm of breast (principal); Z80.3 Family history of malignant neoplasm of breast
CPT/HCPCS: 77063; 77067

== ENCOUNTER 2021-08-28 23:38 | Observation (INO) | payer MEDICARE ==
[2021-08-29] MEDS ORDERED: SODIUM CHLORIDE 0.9% 1,000 ML IV STA (03:10)
[2021-08-29] MEDS ORDERED: methylPREDNISolone SOD SUCCIN 500 MG in SODIUM CHLORIDE 0.9% 100 ML IVPB STA (03:10)
[2021-08-29] MEDS ORDERED: ONDANSETRON 4 MG/2 ML VIAL IVP STA (03:10)
[2021-08-29] MEDS ORDERED: diphenhydrAMINE 50 MG/ML 1 ML VIAL IVP STA (03:10)
[2021-08-29] MEDS ORDERED: NALOXONE 0.4 MG/ML 1 ML VIAL IV PRN (03:12)
[2021-08-29] MEDS ORDERED: ONDANSETRON 4 MG/2 ML VIAL IVP PRN (03:12)
[2021-08-29] MEDS ORDERED: LORazepam 2 MG/ML INJ IV PRN (03:12)
--- NOTE | 2021-08-29 03:16 | ED ---
Dizziness HPI - General Chief Complaint: Dizziness Stated Complaint: light-headed Time Seen by Provider: 08/29/21 02:25 Source: patient Mode of arrival: ambulatory Limitations: no limitations - Related Data Home Medications Medication Instructions Recorded Confirmed Acetaminophen [Tylenol Extra 1,000 mg PO TID PRN 01/22/18 01/22/18 Strength] Previous Rx's Medication Instructions Recorded Cephalexin [Keflex] 500 mg PO Q12HR 6 Days #6 cap 04/23/18 predniSONE [Deltasone] 20 mg PO BID 7 Days #14 tab 12/26/20 Acetaminophen Tab [Tylenol Tab] 500 mg PO Q6H 15 Days #60 tablet 02/25/21 Sulfamethox-Tmp 800-160Mg [Bactrim 1 each PO Q12HR #14 tab 02/25/21 Ds] Allergies Allergy/AdvReac Type Severity Reaction Status Date / Time No Known Allergies Allergy Verified 08/28/21 23:57 Review of Systems ROS Statement: Those systems with pertinent positive or pertinent negative responses have been documented in the HPI. ROS Other: All systems not noted in ROS Statement are negative. Past Medical History Past Medical History: GERD/Reflux, Musculoskeletal Disorder, Neurologic Disorder, Pneumonia Additional Past Medical History / Comment(s): ms. herniated disc and calcified disc as well as bulging disc L4-L5, DJD, chronic back pain, pleurisy, generalized neuropathy per pt, migraines.occ fuzzy vision. History of Any Multi-Drug Resistant Organisms: MRSA Date of last positivie culture/infection: 2010 MDRO Source:: R leg Past Surgical History: Tubal Ligation Additional Past Surgical History / Comment(s): LP's, wisdom teeth extraction. Past Anesthesia/Blood Transfusion Reactions: No Reported Reaction Additional Past Anesthesia/Blood Transfusion Reaction / Comment(s): Pt states she has never received blood. Past Psychological History: PTSD Smoking Status: Current every day smoker, Vaper Past Alcohol Use History: None Reported Past Drug Use History: Marijuana - Past Family History Father Family Medical History: Myocardial Infarction ([place]) Mother Family Medical History: CVA/TIA, Fibromyalgia Additional Family Medical History / Comment(s): mva as teenager, murmur, 2007 (medication abuse) General Exam Limitations: no limitations Course Vital Signs 08/28/21 23:55 Temperature 98.7 F Pulse Rate 68 Respiratory 18 Rate Blood Pressure 137/72 O2 Sat by Pulse 95 Oximetry Disposition Clinical Impression: Exacerbation of multiple sclerosis, Benign paroxysmal positional vertigo Disposition: ADMITTED IP TO THIS HOSP Condition: Good Is patient prescribed a controlled substance at d/c from ED?: No Referrals: Levar Ortiz MD [Primary Care Provider] - 1-2 days
[2021-08-29] MEDS: SODIUM CHLORIDE 0.9% 1,000 ML IV SCH ×3 (03:37→23:08)
[2021-08-29 04:07] LABS: Appearance,Urine Clear (Clear); Bilirubin,Urine Negative (Negative); Blood,Urine Negative (Negative); Color,Urine Light Yellow; Glucose,Urine (UA) Negative (Negative); Ketones,Urine Negative (Negative); Leukocyte Esterase,Urine Trace (Negative); Mucus,Urine Rare /hpf; Nitrite,Urine Negative (Negative); PH, Urine 5.5 (5.0-8.0); Protein,Urine Negative (Negative); RBC,Urine 1 /hpf (0-5); Specific Gravity,Urine 1.009 (1.001-1.035); Squamous Epithelial Cell,Urine <1 /hpf (0-4); Urobilinogen,Urine <2.0 mg/dL (<2.0); WBC,Urine 3 /hpf (0-5)
[2021-08-29 04:08] LABS: Basophils # (A) 0.1 k/uL (0-0.2); Basophils % (A) 1 %; Eosinophils # (A) 0.3 k/uL (0-0.7); Eosinophils % (A) 4 %; HCT 44.5 % (34.0-46.0); HGB 14.2 gm/dL (11.4-16.0); Lymphocytes # (A) 2.5 k/uL (1.0-4.8); Lymphocytes % (A) 29 %; MCH 31.5 pg (25.0-35.0); MCHC 31.8 g/dL (31.0-37.0); MCV 99.2 fL (80.0-100.0); Mean Platelet Volume 8.6; Monocytes # (A) 0.4 k/uL (0-1.0); Monocytes % (A) 5 %; Neutrophils # (A) 5.3 k/uL (1.3-7.7); Neutrophils % (A) 60 %; Platelet Count 193 k/uL (150-450); RBC 4.49 m/uL (3.80-5.40); WBC 8.8 k/uL (3.8-10.6)
--- NOTE | 2021-08-29 04:08 | CT ---
EXAMINATION TYPE: CT brain wo con DATE OF EXAM: 08/29/2021 COMPARISON: 04/20/2015 HISTORY: vertigo CT DLP: 1090.4 mGycm Automated exposure control for dose reduction was used. Ventricles have normal size. There is no mass effect or midline shift. No sign of intracranial hemorr madelin. The calvarium is intact. IMPRESSION: Negative unenhanced head CT scan. No change.
[2021-08-29 04:18] LABS: ALT 17 U/L (4-34); AST 23 U/L (14-36); African American GFR (CKD) >90 (>60 ml/min/1.73 sqM); Albumin 4.3 g/dL (3.5-5.0); Alkaline Phosphatase 59 U/L (38-126); Anion Gap 7 mmol/L; Blood Urea Nitrogen 12 mg/dL (7-17); Carbon Dioxide 23 mmol/L (22-30); Chloride 109 mmol/L (98-107); Glucose 98 mg/dL (74-99); Magnesium 1.9 mg/dL (1.6-2.3); Non-African American GFR(CKD) >90 (>60 ml/min/1.73 sqM); Phosphorus 4.2 mg/dL (2.5-4.5); Potassium 3.9 mmol/L (3.5-5.1); Sodium 139 mmol/L (137-145); Total Bilirubin 0.4 mg/dL (0.2-1.3)
[2021-08-29] MEDS ORDERED: Potassium Replacement Protocol 1 EACH MISC MISCELLANE PRN (08:32)
[2021-08-29] MEDS ORDERED: PANTOPRAZOLE 40 MG/10 ML VIAL IVP SCH (09:00)
[2021-08-29] MEDS: NICOTINE 14MG/24HR PATCH TRANSDERM SCH (09:13)
[2021-08-29] MEDS: SERTRALINE 25 MG TAB PO SCH (09:14)
[2021-08-29] MEDS: BACLOFEN 10 MG TAB PO SCH ×2 (09:14→23:08)
[2021-08-29] MEDS: OXYBUTYNIN 10 MG TAB.ER.24 PO SCH (09:14)
[2021-08-29] MEDS: buPROPion XL 150 MG TAB.ER.24H PO SCH ×2 (09:19→23:15)
[2021-08-29] MEDS: ARTIFICIAL TEARS-HYPROMELLOSE DROPS 15 ML BTL BOTH EYES SCH ×2 (09:23→23:11)
[2021-08-29] MEDS: DORZOLAMIDE-TIMOLOL 2.23%/0.68 10ML BTL BOTH EYES SCH ×2 (09:23→23:11)
[2021-08-29] MEDS: MECLIZINE 25 MG TAB PO SCH ×3 (09:23→23:15)
--- NOTE | 2021-08-29 10:37 | P.CNNES ---
History of Present Illness Consult date: 08/29/21 Requesting physician: Vicente Quesada Reason for Consult: MS Vertigo History of Present Illness: Patient is a 46-year-old female with history of relapsing remitting MS came to the hospital yesterday at 11:38 PM for new onset vertigo. Patient had developed numbness and weakness in the legs in 2014. At that time she was seen by Dr. James and she had a negative spinal tap and MRI. Patient had a second opinion with Dr. De León, who determined patient has MS in 2015. Patient was started on our next, which she continued until she had a relapse in December 2018 in which she developed significant weakness of her lower extremities. She was in a wheelchair for almost a year. Finally she got over the wheelchair was able to walk with a walker. Patient has not been on any disease modifying agent since December 2018. Patient is following up with Dr. Bernla, and is in the process of getting authorization from her insurance to start Ocrevus. Patient at present walks hanging onto the summers but outside she uses a walker. She goes down stairs on her buttocks although sometimes she can do steps, when they are not very uncomfortable. Patient states that her vertigo was started last Friday or Friday, August 20 or 2021. She remembers that she was at her primary care physician's appointment and she got off the table and she noted spinning vertigo. She ignored it, assuming that she just stood up too fast. She came back home. She was sitting down, and when she got up, again had the vertigo. She has noticed recurrence of vertigo, whenever she rolls over in the bed, or if she is tilting her head back. The symptoms does not last too long. She usually has to change her head or body position to provoke the vertigo. She states that she was sitting in the chair, tilted her head back to put eyedrops, and became dizzy. She has never experienced such dizziness/vertigo. Her symptoms improved on and Friday 8 happened only once. On the weekend, Friday and Friday it happened very occasionally, but not bad. Friday night, started again, states her head felt disconnected from her shoulder, which she describes as "like no muscles in her neck". As the symptoms persisted, she decided to come to the ER and arrived here yesterday on Friday, at 11:38 PM. Patient denies any worsen ing of her gait, any new numbness or tingling. Vital signs on arrival blood pressure 137/72, pulse rate [address] head reported as negative unenhanced exam. I personally reviewed CT head agree with the findings. Visualized paranasal sinuses and external auditory canals are clear. EKG shows sinus rhythm. Low voltage QRS. Patient's blood test shows normal CBC, CMP, negative troponin UA negative. Patient had a normal CSF on 09/21/2014 when her IgG index was -0.66, normal IgG synthesis rate, negative oligoclonal bands and myelin basic protein. Lyme titer was negative. B12 449 on 04/24/2021, vitamin B6 was borderline 6, vitamin B-1 normal 57, TSH normal. Patient's home medications include Wellbutrin XL 150 mg twice a day, Zoloft 25 mg, oxybutynin ER 10 mg daily, baclofen 10 mg twice a day. Patient has smoked half to three fourths pack per day since age 20. Still smo kes. She tried quitting twice, but then starts back again. She has tried patches and currently on Wellbutrin. She drinks alcohol very occasionally. Patient denies any diabetes or hypertension. Review of Systems As mentioned above in HPI. Denies any chest pain abdominal pain nausea vomiting diarrhea. No double vision. No loss of vision. All 14 points of review sy stems reviewed, unremarkable except as per HPI. She does have gait dysfunction, uses walker. Past Medical History Past Medical History: GERD/Reflux, Musculoskeletal Disorder, Neurologic Disorder, Pneumonia Additional Past Medical History / Comment(s): ms. herniated disc and calcified disc as well as bulging disc L4-L5, DJD, chronic back pain, pleurisy, generalized neuropathy per pt, migraines.occ fuzzy vision. History of Any Multi-Drug Resistant Organisms: MRSA Date of last positivie culture/infection: 2010 MDRO Source:: R leg Past Surgical History: Tubal Ligation Additional Past Surgical History / Comment(s): LP's, wisdom teeth extraction. Past Anesthesia/Blood Transfusion Reactions: No Reported Reaction Additional Past Anesthesia/Blood Transfusion Reaction / Comment(s): Pt states she has never received blood. Past Psychological History: PTSD Additional Psychological History / Comment(s): apt w/15 year old daughter,inprocess of divirce She lost her walker. now she-she holds onto furniture or daughter helps her. She no longer drives insurance pays for a ride to get to [employer]. Smoking Status: Current every day smoker, Vaper Past Alcohol Use History: None Reported Additional Past Alcohol Use History / Comment(s): started smoking at age 19- smokes 1 pp every 3 days Past Drug Use History: Marijuana Additional Drug Use History / Comment(s): occ use none in last 4 months - Past Family History Father Family Medical History: Myocardial Infarction ([place]) Mother Family Medical History: CVA/TIA, Fibromyalgia Additional Family Medical History / Comment(s): mva as teenager, murmur, 2007 (medication abuse) Medications and Allergies Home Medications Medication Instructions Recorded Confirmed Type Artificial Tears-Hypromellose 1 drop BOTH EYES BID 08/29/21 08/29/21 History [Artificial Tear Drops] Baclofen 10 mg PO BID 08/29/21 08/29/21 History Dorzolamide-Timol 2.23%/0.68% 1 drop BOTH EYES BID 08/29/21 08/29/21 History [Cosopt] Oxybutynin ER [Ditropan Xl] 10 mg PO DAILY 08/29/21 08/29/21 History Sertraline HCl [Zoloft] 25 mg PO DAILY 08/29/21 08/29/21 History buPROPion HCL [Wellbutrin XL] 150 mg PO BID 08/29/21 08/29/21 History Allergies Allergy/AdvReac Type Severity Reaction Status Date / Time No Known Allergies Allergy Verified 08/29/21 07:44 Physical Examination - Vital Signs Vital Signs: Vital Signs Temp Pulse Pulse Resp BP BP Pulse Ox 08/29/21 07:45 98.3 F 77 16 96/55 98 08/29/21 05:38 98.0 F 63 16 111/64 100 08/29/21 05:06 97.2 F L 65 16 95/44 100 08/28/21 23:55 98.7 F 68 18 137/72 95 Intake and Output 08/28/21 08/29/21 08/29/21 22:59 06:59 14:59 Other: # Voids 1 Weight 77.111 kg Patient is a middle aged female, very pleasant, in no acute distress. Patient is alert awake oriented to time place and person. Speech and language functions are normal. Attention, concentration and fund of knowledge is adequate. No aphasia or dysarthria. On cranial nerve examination, pupils are equal, round and reacting to light, visual diamond are full on confrontation, extraocular muscles are intact with no nystagmus. Face is symmetric, tongue protrudes to the midline. Palatal elevation and sensation normal, hearing and shoulder shrug normal, facial sensation normal. Shoulder shrug normal. On muscle strength testing, there is no pronator drift. The strength is normal in the arms except pastry cook apprentice which is 4 on the right, 4+ left. In the lower extr emities, the strength is 3+ in both hip flexion. Hip adduction, hip abduction, knee extension, ankle dorsiflexion are all normal bilaterally. Deep tendon reflexes are 1+ in the upper limbs, 2+ at the knees and 2+ ankles and plantars are flat or downgoing bilaterally. No clonus. Sensory to light touch is slightly decreased in the left arm as compared to the right. However fine touch is equal in the lower extremities. Cerebellar function showed no ataxia for [id number] testing, although she would pass point sometimes. Patient does have ataxia for [id number] testing bilaterally. Tone and bulk of muscles normal. Gait walks with a walker and spastic gait. On general examination, there is no carotid bruit or murmur, S1-S2 audible. Abdomen is soft nontender. No organomegaly, bowel sounds present. Chest is clear. Peripheral pulses are present. No edema. Results - Laboratory Findings CBC and BMP: 08/29/21 03:46 08/29/21 03:46 Abnormal Lab Findings: Abnormal Labs 08/29/21 08/29/21 03:46 03:46 Chloride 109 H Ur Leukocyte Esterase Trace H Urine Mucus Rare H Assessment and Plan Assessment: * Probable benign positional peripheral vertigo. No history of recent trauma. Cannot rule out MS exacerbation. * Relapsing remitting multiple sclerosis Plan: * MRI of the brain with and without contrast to evaluate for MS flareup. * Patient already started on Solu-Medrol 500 mg every 12 hours from the ER. Will continue for now. * PT OT evaluate. * Consider vestibular rehabilitation if available. * Antivert as needed. * Recommended tobacco cessation * Patient to follow up with her neurologist in 1-2 weeks after discharge. * Neurology will follow. Thank you for the consult.
[2021-08-29] MEDS: methylPREDNISolone SOD SUCCIN 500 MG in SODIUM CHLORIDE 0.9% 100 ML IVPB SCH ×2 (11:28→23:07)
[2021-08-29 11:53] LABS: Glucose,Whole Blood 231 mg/dL (75-99)
[2021-08-29] MEDS ORDERED: methylPREDNISolone SOD SUCCIN 500 MG in SODIUM CHLORIDE 0.9% 100 ML IVPB SCH (12:00)
[2021-08-29] MEDS: INSULIN ASPART (NovoLOG) 100 UNIT/ML VIAL SQ SCH ×3 (12:32→23:07)
--- NOTE | 2021-08-29 16:40 | P.HPIM ---
History of Present Illness H&P Date: 08/29/21 Chief Complaint: Vertigo Bettye Huang is a 46 yo F with PMH of RRMS, initially diagnosed in 2015 and previously on Ocrevus, currently not taking anything for this who presented to the ED complaining of vertigo. She states she was at her PCP office last week and experienced dizziness after standing up quickly, since that time has experienced feeling of disequilibrium and headache. She feels the vertigo is triggered whenever she turns her head or moves her body and then lasts a few moments. She denies any weakness or vision change. Pt reports she has not been on the ocrevus since 2019 due to insurance issues and she does continue to follow with neurology. On presentation vitals stable, CT head no acute process, CBC, CMP, trop unremarkable. Review of Systems All systems: negative Constitutional: Denies chills, Denies fever Eyes: denies blurred vision, denies pain Ears, nose, mouth and throat: Denies headache, Denies sore throat Cardiovascular: Denies chest pain, Denies shortness of breath Respiratory: Denies cough Gastrointestinal: Denies abdominal pain, Denies diarrhea, Denies nausea, Denies vomiting Genitourinary: Denies dysuria, Denies hematuria Musculoskeletal: Denies myalgias Integumentary: Denies pruritus, Denies rash Neurological: Reports headaches, Reports vertigo, Denies numbness, Denies weakness Psychiatric: Denies anxiety, Denies depression Endocrine: Denies fatigue, Denies weight change Past Medical History Past Medical History: GERD/Reflux, Musculoskeletal Disorder, Neurologic Disorder, Pneumonia Additional Past Medical History / Comment(s): ms. herniated disc and calcified disc as well as bulging disc L4-L5, DJD, chronic back pain, pleurisy, generalized neuropathy per pt, migraines.occ fuzzy vision. History of Any Multi-Drug Resistant Organisms: MRSA Date of last positivie culture/infection: 2010 MDRO Source:: R leg Past Surgical History: Tubal Ligation Additional Past Surgical History / Comment(s): LP's, wisdom teeth extraction. Past Anesthesia/Blood Transfusion Reactions: No Reported Reaction Additional Past Anesthesia/Blood Transfusion Reaction / Comment(s): Pt states she has never received blood. Past Psychological History: PTSD Additional Psychological History / Comment(s): apt w/15 year old daughter,inprocess of divirce She lost her walker. now she-she holds onto furniture or daughter helps her. She no longer drives insurance pays for a ride to get to [employer]. Smoking Status: Current every day smoker, Vaper Past Alcohol Use History: None Reported Additional Past Alcohol Use History / Comment(s): started smoking at age 19- smokes 1 pp every 3 days Past Drug Use History: Marijuana Additional Drug Use History / Comment(s): occ use none in last 4 months - Past Family History Father Family Medical History: Myocardial Infarction ([place]) Mother Family Medical History: CVA/TIA, Fibromyalgia Additional Family Medical History / Comment(s): mva as teenager, murmur, 2007 (medication abuse) Medications and Allergies Home Medications Medication Instructions Recorded Confirmed Type Artificial Tears-Hypromellose 1 drop BOTH EYES BID 08/29/21 08/29/21 History [Artificial Tear Drops] Baclofen 10 mg PO BID 08/29/21 08/29/21 History Dorzolamide-Timol 2.23%/0.68% 1 drop BOTH EYES BID 08/29/21 08/29/21 History [Cosopt] Oxybutynin ER [Ditropan Xl] 10 mg PO DAILY 08/29/21 08/29/21 History Sertraline HCl [Zoloft] 25 mg PO DAILY 08/29/21 08/29/21 History buPROPion HCL [Wellbutrin XL] 150 mg PO BID 08/29/21 08/29/21 History Allergies Allergy/AdvReac Type Severity Reaction Status Date / Time No Known Allergies Allergy Verified 08/29/21 07:44 Physical Exam Vitals: Vital Signs Temp Pulse Pulse Resp BP BP Pulse Ox 08/29/21 13:50 97.5 F L 71 16 99/62 93 L 08/29/21 07:45 98.3 F 77 16 96/55 98 08/29/21 05:38 98.0 F 63 16 111/64 100 08/29/21 05:06 97.2 F L 65 16 95/44 100 08/28/21 23:55 98.7 F 68 18 137/72 95 Intake and Output 08/29/21 08/29/21 08/29/21 06:59 14:59 22:59 Other: # Voids 1 1 Weight 77.111 kg General: well nourished, well developed, NAD. Vitals reviewed Eyes: PERRL, EOMI, conjunctiva normal HENT: normocephalic, mucus membranes moist Neck: supple, no JVD Lungs: normal respiratory effort, no wheezes or rales CV: Regular rate and rhythm, no murmur. Peripheral pulses 2+ Abdomen: soft, nondistended, no organomegaly Lymph: no cervical or axillary LAD Skin: warm and dry. Neuro: A&Ox3, normal mood and affect. No nystagmus Results CBC & Chem 7: 08/29/21 03:46 08/29/21 03:46 Labs: Abnormal Lab Results - Last 24 Hours (Table) 08/29/21 08/29/21 08/29/21 Range/Units 03:46 03:46 11:49 Chloride 109 H (98-107) mmol/L POC Glucose (mg/dL) 231 H (75-99) mg/dL Ur Leukocyte Esterase Trace H (Negative) Urine Mucus Rare H (None) /hpf Thrombosis Risk Factor Assmnt - Choose All That Apply Each Factor Represents 1 point: Age 41-60 years, Obesity (BMI >25) Thrombosis Risk Factor Assessment Total Risk Factor Score: 2 Thrombosis Risk Factor Assessment Level: Low Risk Assessment and Plan Plan: 1. Vertigo. BPPV vs MS flare. Admit, consult Neurology. MRI brain. Start IV steroids. Sliding scale insulin 2. Major depression. Continue with zoloft, wellbutrin 3. Tobacco abuse. NRT
[2021-08-29 16:55] LABS: Glucose,Whole Blood 124 mg/dL (70-110)
--- NOTE | 2021-08-29 20:40 | MR ---
EXAMINATION TYPE: MR brain wo/w con DATE OF EXAM: 08/29/2021 COMPARISON: Prior MRI brain September 02, 2014 HISTORY: Vertigo, multiple sclerosis, possible exacerbation TECHNIQUE: Multiplanar, multisequence images of the brain and brainstem is performed without and with IV contras t, utilizing 7.5 mL intravenous Gadavist gadolinium contrast is administered intravenously. Demyelin ating disease protocol with additional Sagittal Flair sequence performed. FINDINGS: T2 Lesions Present : No Approximate Number of Lesions: N/A Locations Identified : N/A Size of Reference Lesion(s): N/A Enhancing Lesion(s) Present: No T1 Hypointense Lesion(s) Present: No Change from prior study: N/A Diffusion weighted images demonstrate no evidence of a recent infarct or other diffusion abnormality. There is no worrisome extra-axial fluid collection. The ventricular system and cisternal spaces ar e normal in size and appearance. The brain volume is age appropriate. Cavum septum pellucidum redemo nstrated. Midline structures demonstrate normal morphology. The craniocervical junction appears within normal limits. Post contrast images demonstrate no abnormal enhancement. The dural venous sinuses appear pa tent. The visualized sinuses are clear and the globes are intact. No abnormal fluid signal bilateral mastoid air cells. IMPRESSION: No significant white matter changes. No enhancing lesions.
[2021-08-29 20:48] LABS: Glucose,Whole Blood 256 mg/dL (70-110)
[2021-08-30] MEDS: SODIUM CHLORIDE 0.9% 1,000 ML IV SCH ×2 (04:32→10:13)
[2021-08-30 07:18] LABS: Glucose,Whole Blood 166 mg/dL (70-110)
[2021-08-30] MEDS ORDERED: PANTOPRAZOLE 40 MG TABLET PO SCH (07:30)
[2021-08-30 07:34] VITALS: BP 92/58; PULSE 67; RESP 16; TEMP 97.5
[2021-08-30] MEDS: INSULIN ASPART (NovoLOG) 100 UNIT/ML VIAL SQ SCH ×2 (08:41→12:45)
[2021-08-30] MEDS: NICOTINE 14MG/24HR PATCH TRANSDERM SCH (08:42)
[2021-08-30] MEDS: SERTRALINE 25 MG TAB PO SCH (08:42)
[2021-08-30] MEDS: BACLOFEN 10 MG TAB PO SCH (08:42)
[2021-08-30] MEDS: OXYBUTYNIN 10 MG TAB.ER.24 PO SCH (08:42)
[2021-08-30] MEDS: MECLIZINE 25 MG TAB PO SCH (08:42)
[2021-08-30] MEDS: DORZOLAMIDE-TIMOLOL 2.23%/0.68 10ML BTL BOTH EYES SCH (08:43)
[2021-08-30] MEDS: ARTIFICIAL TEARS-HYPROMELLOSE DROPS 15 ML BTL BOTH EYES SCH (08:43)
[2021-08-30] MEDS: methylPREDNISolone SOD SUCCIN 500 MG in SODIUM CHLORIDE 0.9% 100 ML IVPB SCH (11:20)
[2021-08-30 11:41] LABS: Glucose,Whole Blood 115 mg/dL (70-110)
--- NOTE | 2021-08-30 15:37 | P.DS ---
Providers Date of admission: 08/29/21 03:13 Expected date of discharge: 08/30/21 Attending physician: Levar Ortiz MD Consults: 08/29/21 03:12 Consult Physician Routine Consulting Provider: Cristy Sharif Consult Reason/Comments: MSvertigo Do you want consulting provider notified?: Yes Primary care physician: Levar Ortiz MD Hospital Course: Final Diagnoses: Vertigo, BPPV. Brain MRI not suggestive of MS flareup Major depression Tobacco abuse Hospital course:Bettye Huang is a 46 yo F with PMH of RRMS, initially diagnosed in 2014 and previously on Ocrevus, currently not taking anything for this who presented to the ED complaining of vertigo. She states she was at her PCP office last week and experienced dizziness after standing up quickly, since that time has experienced feeling of disequilibrium and headache. She feels the vertigo is triggered whenever she turns her head or moves her body and then lasts a few moments. She denies any weakness or vision change. Pt reports she has not been on the ocrevus since 2019 due to insurance issues and she does continue to follow with neurology. On presentation vitals stable, CT head no acute process, CBC, CMP, trop unremarkable. Continue high-dose IV steroids, Antivert .Evaluated by neurology, recommended consider significant clinical improvement. vestibular rehabilitation. Brain MRI reported midline structures was normal morphology, craniocervical junction within normal limits, no enhancing lesions, no significantly matter changes, no change from prior study. Significant clinical improvement. Patient will be discharged home today in a stable condition with guarded prognosis pending neurology review of MRI, final DC recommendations and clearance. Outpatient in clinic, PT will be arranged for vestibular ocular maneuvers. Smoking cessation reinforced. The impression and plan of care has been dictated as directed. : I performed a history and examination of this patient, discussed the same with the dictator. I agree with the dictator's note ,documented as a scribe. Any additional findings or plans will be noted. Patient Condition at Discharge: Stable Plan - Discharge Summary New Discharge Prescriptions: New Meclizine [Antivert] 12.5 mg PO Q6H PRN #30 tablet PRN Reason: Vertigo Nicotine 14Mg/24Hr Patch [Habitrol] 1 patch TRANSDERM DAILY patch predniSONE 10 mg PO DIRECTED #30 tab Continue buPROPion HCL [Wellbutrin XL] 150 mg PO BID Sertraline HCl [Zoloft] 25 mg PO DAILY Oxybutynin ER [Ditropan Xl] 10 mg PO DAILY Artificial Tears-Hypromellose [Artificial Tear Drops] 1 drop BOTH EYES BID Dorzolamide-Timol 2.23%/0.68% [Cosopt] 1 drop BOTH EYES BID Baclofen 10 mg PO BID Discharge Medication List Artificial Tears-Hypromellose [Artificial Tear Drops] 1 drop BOTH EYES BID 08/29/21 [History] Baclofen 10 mg PO BID 08/29/21 [History] Dorzolamide-Timol 2.23%/0.68% [Cosopt] 1 drop BOTH EYES BID 08/29/21 [History] Oxybutynin ER [Ditropan Xl] 10 mg PO DAILY 08/29/21 [History] Sertraline HCl [Zoloft] 25 mg PO DAILY 08/29/21 [History] buPROPion HCL [Wellbutrin XL] 150 mg PO BID 08/29/21 [History] Meclizine [Antivert] 12.5 mg PO Q6H PRN #30 tablet 08/30/21 [Rx] Nicotine 14Mg/24Hr Patch [Habitrol] 1 patch TRANSDERM DAILY patch 08/30/21 [Rx] predniSONE 10 mg PO DIRECTED #30 tab 08/30/21 [Rx] Follow up Appointment(s)/Referral(s): Levar Ortiz MD [Primary Care Provider] - 3 Days Leeann Hankins MD [Medical Doctor] - 1 Week (patient already has apointment ) Patient Instructions/Handouts: Multiple Sclerosis (DC), Vertigo (DC) Activity/Diet/Wound Care/Special Instructions: No smoking Discharge Disposition: HOME SELF-CARE
== END 2021-08-30 12:48 | disposition home or self-care (01) ==
LOC: EC 23:38 → 6NMEDSUR 08-29 03:13
PROVIDERS: ADMIT Family Medicine; ATTEND Family Medicine
DX: H81.10 Benign paroxysmal vertigo, unspecified ear (principal); G35 Multiple sclerosis; F32.9 Major depressive disorder, single episode, unspecified; K21.9 Gastro-esophageal reflux disease without esophagitis; G43.909 Migraine, unspecified, not intractable, without status migrainosus; G89.29 Other chronic pain; M51.26 Other intervertebral disc displacement, lumbar region; M19.90 Unspecified osteoarthritis, unspecified site; G62.9 Polyneuropathy, unspecified; F43.10 Post-traumatic stress disorder, unspecified; F17.210 Nicotine dependence, cigarettes, uncomplicated; F17.290 Nicotine dependence, other tobacco product, uncomplicated; E66.9 Obesity, unspecified; Z68.25 Body mass index [BMI] 25.0-25.9, adult; Z79.899 Other long term (current) drug therapy; Z87.01 Personal history of pneumonia (recurrent); Z86.14 Personal history of Methicillin resistant Staphylococcus aureus infection; Z98.51 Tubal ligation status; Z98.818 Other dental procedure status; Z98.890 Other specified postprocedural states; Z82.49 Family history of ischemic heart disease and other diseases of the circulatory system; Z82.3 Family history of stroke; Z82.69 Family history of other diseases of the musculoskeletal system and connective tissue; Z81.3 Family history of other psychoactive substance abuse and dependence; Z71.6 Tobacco abuse counseling
CPT/HCPCS: 96361 ×2; 96366 ×2; 96375 ×2; 96365; 99285; 93005; 97116; 97162; 80053; 83735; 84100; 84484; 85025; 81001; 70450; 70553; G0378 ×2; S4990 ×2; J1200; J2405; J2930 ×2; C9113; A9585

== ENCOUNTER → 2021-09-21 | Outpatient (CLI) | payer MEDICARE ==
[2021-09-21 22:17] LABS: HCT 42.9 % (37.2-46.3); MCH 31.2 pg (27.0-32.0); MCHC 32.6 g/dL (32.0-37.0); MCV 95.5 fL (80.0-97.0); Mean Platelet Volume 11.8 fL (9.5-12.2); NRBC Per 100 WBC 0 /100 WBCS (0.0-0.0); Platelet Count 264 X 10*3/uL (140-440); RBC 4.49 X 10*6/uL (4.10-5.20); RDW 13.9 % (11.5-14.5); WBC 4.95 X 10*3/uL (4.50-10.00)
[2021-09-21 22:50] LABS: ALT 13 U/L (8-44); AST 13 U/L (13-35); Albumin 4.4 g/dL (3.8-4.9); Albumin/Globulin Ratio 2.16 (1.60-3.17); Alkaline Phosphatase 61 U/L (41-126); Bilirubin, Conjugated <0.20 mg/dL (0.20-0.40); Globulin 2.1 g/dL (1.6-3.3); Total Protein 6.5 g/dL (6.2-8.2)
== END ==
LOC: LABWHC1 14:04
PROVIDERS: ATTEND Nurse Practitioner Family
DX: Z01.818 Encounter for other preprocedural examination (principal); F17.200 Nicotine dependence, unspecified, uncomplicated
CPT/HCPCS: 36415; 80076; 85027; 86787; 93005

== ENCOUNTER 2023-04-28 09:47 | Day surgery (SDC) | payer MEDICARE, OTHER ==
[2023-04-28] MEDS ORDERED: LIDOCAINE 1% (10MG/ML) FOR IV START INTRADERMA PRN (12:03)
[2023-04-28 12:05] VITALS: RESP 16; TEMP 97
[2023-04-28] MEDS: LACTATED RINGERS 1,000 ML IV SCH (12:12)
--- NOTE | 2023-04-28 12:57 | P.GSHP ---
History of Present Illness H&P Date: 04/28/23 Chief Complaint: Screening colonoscopy This is a 48-year-old female who presents today for screening colonoscopy. Patient denies any significant GI complaints. Past Medical History Past Medical History: GERD/Reflux, Musculoskeletal Disorder, Neurologic Disorder, Pneumonia Additional Past Medical History / Comment(s): ms. herniated disc and calcified disc as well as bulging disc L4-L5, DJD, chronic back pain, pleurisy, generalized neuropathy per pt, migraines.occ fuzzy vision. History of Any Multi-Drug Resistant Organisms: MRSA Date of last positivie culture/infection: 2010 MDRO Source:: R leg Past Surgical History: Tubal Ligation Additional Past Surgical History / Comment(s): LP's, wisdom teeth extraction. Past Anesthesia/Blood Transfusion Reactions: No Reported Reaction Additional Past Anesthesia/Blood Transfusion Reaction / Comment(s): Pt states she has never received blood. Past Psychological History: PTSD Smoking Status: Current every day smoker, Vaper Past Alcohol Use History: None Reported Past Drug Use History: Marijuana - Past Family History Father Family Medical History: Myocardial Infarction ([place]) Mother Family Medical History: CVA/TIA, Fibromyalgia Additional Family Medical History / Comment(s): mva as teenager, murmur, 2007 (medication abuse) Medications and Allergies Home Medications Medication Instructions Recorded Confirmed Type Artificial Tears-Hypromellose 1 drop BOTH EYES BID 08/29/21 04/28/23 History [Artificial Tear Drops] Baclofen 20 mg PO TID 08/29/21 04/28/23 History Dorzolamide-Timol 2.23%/0.68% 1 drop BOTH EYES BID 08/29/21 04/28/23 History [Cosopt] Oxybutynin ER [Ditropan XL] 10 mg PO DAILY 08/29/21 04/28/23 History Sertraline HCl [Zoloft] 100 mg PO DAILY 08/29/21 04/28/23 History buPROPion HCL [Wellbutrin XL] 300 mg PO BID 08/29/21 04/28/23 History Meclizine [Antivert] 12.5 mg PO Q6H PRN #30 tablet 08/30/21 04/28/23 Rx Nicotine 14Mg/24Hr Patch [Habitrol] 1 patch TRANSDERM DAILY patch 08/30/21 04/28/23 Rx Omeprazole 20 mg PO DAILY 04/28/23 04/28/23 History Topiramate [Topamax] 25 mg PO DAILY 04/28/23 04/28/23 History traZODone HCL [Desyrel] 25 mg PO DAILY 04/28/23 04/28/23 History Allergies Allergy/AdvReac Type Severity Reaction Status Date / Time No Known Allergies Allergy Verified 04/28/23 12:03 Surgical - Exam Vital Signs Temp Pulse Resp BP Pulse Ox 97 F L 76 16 117/56 97 04/28/23 12:01 04/28/23 12:01 04/28/23 12:01 04/28/23 12:01 04/28/23 12:01 - General well developed, well nourished, no distress - Eyes PERRL - ENT normal pinna - Neck no masses - Respiratory normal expansion - Cardiovascular Rhythm: regular - Abdomen Abdomen: soft, non tender Assessment and Plan Assessment: perform screening colonoscopy.
[2023-04-28] MEDS ORDERED: PROPOFOL 10 MG/ML 20 ML VIAL IV ONE (12:58)
--- NOTE | 2023-04-28 13:23 | P.OP ---
Date of Procedure: 04/28/23 Preoperative Diagnosis: Screening colonoscopy Postoperative Diagnosis: Normal colon Procedure(s) Performed: Colonoscopy Anesthesia: MAC Surgeon: Eyad Dobbs Pathology: none sent Condition: stable Disposition: PACU Description of Procedure: Placed on the endoscopy table in the lateral position. She received IV sedation. Digital rectal exam was performed. This revealed no abnormalities. The flexible colonoscope was then placed patient anus and passed throughout the entire colon. The ileocecal valve was visualized. The cecum, ascending and transverse colon appeared normal. Descending and sigmoid colon appeared normal. Scope Cinobac to rectum as per normal. Scope withdrawn for the patient.
[2023-04-28 14:04] VITALS: BP 103/68; PULSE 71
== END 2023-04-28 14:40 | disposition home or self-care (01) ==
LOC: ORWHC2ENDO 09:47
PROVIDERS: ATTEND Surgery
DX: Z12.11 Encounter for screening for malignant neoplasm of colon (principal); K21.9 Gastro-esophageal reflux disease without esophagitis; G89.29 Other chronic pain; F17.200 Nicotine dependence, unspecified, uncomplicated; F12.90 Cannabis use, unspecified, uncomplicated; Z82.3 Family history of stroke; Z98.51 Tubal ligation status; Z98.890 Other specified postprocedural states; Z79.899 Other long term (current) drug therapy
CPT/HCPCS: 45378; 81025

== ENCOUNTER → 2023-05-21 | Outpatient (CLI) | payer MEDICARE ==
--- NOTE | 2023-05-26 16:47 | NM ---
EXAMINATION TYPE: NM thyroid image w uptake DATE OF EXAM: 05/22/2023 COMPARISON: 04/26/2021 CLINICAL INDICATION: Female, 48 years old with history of E03.9 HYPOTHYROIDISM, UNSPECIFIED; TECHNIQUE: Thyroid iodine uptake is calculated and images performed after the oral administration of 321 uCi 1-123 Capsule. FINDINGS: There is normal distribution of activity throughout the gland. The 4 hour iodine uptake is calculated at 24.9% (normal range 8-14%). The 24-hour iodine uptake is calculated at 51.2% (normal r josefa 15-35%). Asymmetric uptake in the left mid thyroid gland possibly relating to thyroid nodule seen on 04/26/2021 thyroid ultrasound. Consider repeat thyroid ultrasound. IMPRESSION: Findings compatible with hyperthyroidism. There is asymmetric uptake in the left mid thyr oid gland possibly related to hyper functioning thyroid nodule.
== END | disposition home or self-care (01) ==
LOC: RADNMMAIN 08:30
PROVIDERS: ATTEND Family Medicine
DX: E03.9 Hypothyroidism, unspecified (principal)
CPT/HCPCS: 78014; A9516